=== PATIENT | female | born 1975 | race Caucasian/White ===

== ENCOUNTER 2025-02-13 11:47 | Emergency (ER) | payer OTHER, SELFPAY ==
--- NOTE | ~2025-02-13 | XR_ITS ---
EXAMINATION: XR CHEST 2 VIEWS HISTORY: fever COMPARISON: There are no prior studies available for comparison. FINDINGS: PA and lateral views of the chest are submitted. The lungs are expanded and clear. There is no pleural effusion, pneumothorax, or pulmonary vascular congestion. The heart is normal in size. The bones are intact. XR/XR chest 2V IMPRESSION: Clear lungs. Electronically signed by: Florencio Kwon MD 02/13/2025 01:55 PM EDT
[2025-02-13 11:57] VITALS: BP 103/73; PULSE 110; RESP 16; TEMP 36.9; O2SAT 100; BMI 28.3
[2025-02-13 12:00] VITALS: BP 108/72; PULSE 100; RESP 16; TEMP 36.9; O2SAT 100
--- NOTE | 2025-02-13 12:08 | ED.GENADULT ---
HPI - General Adult General Chief complaint: Urogenital-Female Stated complaint: Chills Fever Etc Time Seen by Provider: 02/13/25 13:00 History of Present Illness ED Provider: Bree CRUZ narrative: The patient is a 50-year-old woman who has been having problems for almost a month. She was traveling and [place] recently. She was in [place] from December 21 to January 22. While in [place] she was in [facility] and 2 other moderately large cities. She was not in the jungle or the country side she says. She says that she started to feel ill while she was in [place]. She estimates that she started to have problems with feeling feverish and maybe some urinary discomfort around January 08. She went to some kind of a clinic while she was in [place] and given some antibiotics for a possible UTI. She returned to the [facility] on January 22 and she had a regularly scheduled appointment with her doctor on February 02. She was feeling somewhat worse just before she saw her PCP at the [facility] clinic on February 02. She was prescribed a 10 day course of sulfamethoxazole/trimethoprim. She continued to feel worse however and on February 06 went to the emergency room at [facility]. At that visit she was complaining of fever and abdominal discomfort. She had a CAT scan of the abdomen and pelvis with IV contrast that was negative. She has a urinalysis that showed 12 white cells. She was placed on a course of cefpodoxime, 200 mg b.i.d. which she has been taking since then. Despite the antibiotic she has continued to have fevers. Yesterday she went to the emergency room at [facility] because she was having ongoing fevers despite the antibiotics. She waited in the emergency room 11 hours before she finally left the waiting room and frustration. She comes here today because she continues to have fevers. She says that her fevers has been most obvious in the design cell engineer at around 01:00 and then again around 10:00. She has a associated sweats and chills. No significant dysuria. No cough. 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 She continues to have mild back and abdominal pain. Her last dose of cefpodoxime was today at noon. The urine culture that was submitted at [facility] last week grew mixed urogenital yemi, 10,000-25,000 colony-forming units Related Data Previous Rx's ?Medication ?Instructions ?Recorded doxycycline monohydrate 100 mg 100 mg PO BID #20 caps 02/13/25 capsule ibuprofen 400 mg tablet 400 mg PO Q6H PRN pain #14 tabs 02/13/25 ondansetron 4 mg disintegrating 4 mg PO Q6H PRN nausea and 02/13/25 tablet vomiting #10 tabs Allergies Allergy/AdvReac Type Severity Reaction Status Date / Time Iodinated Contrast Media (IV Allergy Unknown Verified 02/13/25 12:10 Contrast Dye) Penicillins Allergy Unknown Verified 02/13/25 12:10 Review of Systems Review of Systems: Yes all other systems are reviewed and are negative PMFSH Social History Social History Smoked in Last 30 Days: No Use of substances other than those prescribed or required for medical reasons: No Advance Directives: No Advance Directives Information Provided: Yes Do you have a plan to hurt others: No Plan Patient : No Physical Exam ED Vital Signs: Vital Signs - 24 hr 02/13/25 11:57 02/13/25 12:00 02/13/25 14:42 Temperature 98.4 F 98.5 F 100.5 F H Pulse Rate 110 H 100 102 H Respiratory Rate 16 16 22 H Blood Pressure 103/73 108/72 109/71 Pulse Oximetry 100 100 98 Oxygen Delivery Method Room Air Room Air Room Air 02/13/25 16:00 02/13/25 18:00 02/13/25 18:23 Temperature 100.0 F 99.7 F 100.0 F Pulse Rate 60 104 H 60 Respiratory Rate 18 18 18 Blood Pressure 103/60 99/49 L 103/60 Pulse Oximetry 99 96 99 Oxygen Delivery Method Room Air Room Air Room Air BMI result Body Mass Index 28.3 Const Other: The patient is a 50-year-old woman who is awake and alert with a normal mental status. She looks somewhat flushed and mildly unwell but not acutely toxic. Orientation/consciousness: patient oriented x3 HENMT Other: Face is symmetrical. The patient has a large denture appliance on the roof of her mouth. No intraoral swelling. No trismus. No facial swelling. Mucous membranes are moist. The posterior pharynx is normal. Eyes Other: Pupils are round equal, conjunctivae are clear, extraocular movements intact General: appearance normal, both eyes and all related structures Neck Neck: Yes normal visual inspection, Yes full ROM and Yes no lymphadenopathy Resp Effort & Inspection: normal respiratory effort Auscultation: clear to auscultation bilaterally Cardio Other: No murmur heard Rate: regular rate Rhythm: regular rhythm Heart sounds: S1 normal heart sound present and S2 normal heart sound present GI Other: The abdomen is soft and nontender Skin Other: The skin is dry and unremarkable. No rash or other lesions. Neuro General: patient oriented x3, tone normal, moves all extremities, no focal motor deficits and CN's II-XI intact bilaterally Extrem Other: There is no calf swelling or tenderness. No asymmetry. No peripheral edema. Course Course Course Narrative: RME, this is a rapid medical exam performed by Joni Wu please refer to primary provider for complete H&P- 50 year old female presents for evaluation of fevers and chills. She reports that she was recently seen at [facility] and diagnosed with a UTI she reports that she is currently taking antibiotics. Plan for labs including blood cultures and urinalysis. Medications Administered Discontinued Medications Generic Name Dose Route Start Last Admin Trade Name Freq PRN Reason Stop Dose Admin Sodium Chloride 1,000 mls @ 999 mls/hr 02/13/25 13:30 02/13/25 14:42 Ns IV 02/13/25 14:30 Infused .Q1H1M KAVEH Infusion Sodium Chloride 1,000 mls @ 999 mls/hr 02/13/25 15:30 02/13/25 15:41 Ns IV 02/13/25 16:30 999 mls/hr .Q1H1M KAVEH Administration Acetaminophen 1,000 mg in 100 mls @ 400 mls/hr 02/13/25 16:27 02/13/25 16:43 Ofirmev IV 02/13/25 16:41 400 mls/hr ONCE ONE Administration Ketorolac Tromethamine 15 mg 02/13/25 15:21 02/13/25 15:40 Ketorolac Tromethamine 15 Mg/Ml Vial IVPUSH 02/13/25 15:22 15 mg ONCE ONE Administration Medical Decision Making Medical Decision Making MDM Narrative: The patient is a 50-year-old woman who has been sick for several weeks. She recently spent a month in [facility] in [facility]. She was in [facility] and 2 other moderately sized cities. She was not in the jungle and she does not think she had any unusual exposures while she was there. She has been having fevers for a couple of weeks now. She thought that perhaps she had urinary symptoms. She was initially started on Bactrim by her PCP on February 02. She was then seen in the emergency room at [facility] on February 06 when she was placed on cefpodoxime for a possible UTI. She had a negative CT of the abdomen and pelvis at that time. Her urine culture from the ED at [facility] did not grow any dominant organism. There was mixed yemi. She continues to have fevers as high as 104 despite taking the cefpodoxime. Blood cultures has been ordered at triage. Her lactate is normal. She reports having taken her last dose of cefpodoxime just before coming to the emergency room. This will likely make the blood cultures unreliable. However the patient's workup is not really suggesting a bacterial etiology for her fevers. She has a white count of 4.8. She has mild thrombocytopenia with a platelet count of 147. Her differential on her white count shows 66% neutrophils. Manual review of the slides suggests atypical lymphocytes probably consistent with a viral illness. The patient has an AST of 203, ALT 401, alk phos 166. Bilirubin is normal. CRP mildly elevated at 3.88. ESR mildly elevated at 27. My overall impression is that the patient probably does not have an acute bacterial illness but probably has some kind of unusual illness related to her travel in [place]. I spoke to Dr. Mota a pathology who reviewed the manual differential. He felt the differential looked more consistent with a viral infection than anything else. No findings to suggest malaria. I reviewed these cases with Dr. Ventura as well. She requested testing for tick-borne illness. We will send a Lyme test as well as anaplasmosis. Additionally testing for dengue has been sent. The patient will be started on a 10 day course of doxycycline. The patient was given an IV fluids while in the emergency room. She seemed to feel better. She seems to feel well enough for discharge and management as an outpatient. She was told that she probably has an unusual viral illness. If she feels significantly worse she should return to the emergency room. Lab Data 02/13/25 12:19 02/13/25 12:19 Labs: Lab Results 02/13/25 02/13/25 02/13/25 Range/Units 12:19 12:57 14:18 WBC 4.8 (4.8-10.8) X10*3/uL RBC 3.83 L (4.20-5.50) X10*6/uL Hgb 12.6 (12.0-16.0) g/dl Hct 35.7 L (37.0-47.0) % MCV 93.2 (80.0-98.0) fL MCH 32.9 (27.0-33.0) pg MCHC 35.3 H (31.0-35.0) g/dl RDW 14.1 (11.0-16.0) % Plt Count 147 L (160-400) X10*3/uL MPV 10.7 (9.4-12.3) fL Immature Gran % (Auto) Cancelled Neut % (Auto) Cancelled Lymph % (Auto) Cancelled Wheeler % (Auto) Cancelled Eos % (Auto) Cancelled Baso % (Auto) Cancelled Lymph # (Auto) Cancelled Wheeler # (Auto) Cancelled Eos # (Auto) Cancelled Baso # (Auto) Cancelled Abs Immat Gran (auto) Cancelled Absolute Neuts (auto) Cancelled Absolute Nucleated RBC 0.000 (0.0-0.012) X10*3/uL Nucleated RBC % (auto) 0.0 (0.0-0.2) /100WBC Neutrophils % (Manual) 66 (45-73) % Band Neutrophils % 4 (3-5) % Lymphocytes % (Manual) 12 L (20-40) % Atypical Lymphs % (Man) 2 (0-6) % Monocytes % (Manual) 7 (2-11) % Eosinophils % (Manual) 2 (0-4) % Basophils % (Manual) 1 (0-2) % Metamyelocytes % 1 % Myelocytes % 3 % Blast Cells % (Manual) 2 % Abs Neuts (Manual) 3.4 (2.0-8.3) X10*3/uL Lymphocytes # (Manual) 0.6 L (1.2-4.9) X10*3/uL Atyp Lymphs # (Manual) 0.1 x10*3/uL Monocytes # (Manual) 0.3 (0.1-1.2) X10*3/uL Eosinophils # (Manual) 0.1 (0.0-0.4) X10*3/uL Myelocytes # 0.1 X10*/uL Blast Cells # 0.1 X10*3/uL Smudge Cells PRESENT Toxic Vacuolation PRESENT Platelet Estimate NORMAL (NORMAL) Large Platelets PRESENT Plt Morphology Comment NOTED RBC Morphology NOTED Polychromasia 1+ (0-2) /OIF Macrocytosis 1+ (5-14) /OIF Smear Tech's Comments MANUAL DIFF Smear Path Review SEE NOTE ESR 27 H (0-20) MM/HR Sodium 138 (135-145) mmol/L Potassium 3.7 (3.3-5.1) mmol/L Chloride 103 (96-108) mmol/L Carbon Dioxide 26 (22-29) mmol/L Anion Gap 13 (12-20) BUN 16 (9-16) mg/dL Creatinine 0.80 (0.5-1.4) mg/dL Estim Creat Clear Calc 83.3 Estimated GFR > 60 Random Glucose 116 H (60-115) mg/dL Lactic Acid 1.6 (0.5-2.0) mmol/L Calcium 8.8 (8.4-10.2) mg/dL Total Bilirubin 0.6 (0.0-1.0) mg/dL AST 203 H (5-31) U/L ALT 401 H (0-31) U/L Alkaline Phosphatase 166 H (39-117) U/L C-Reactive Protein 3.88 H (< or = 0.50) mg/dL Total Protein 7.4 (6.5-8.0) g/dL Albumin 3.7 (3.5-5.0) g/dL Lipase 13 (8-78) U/L Beta HCG, Quant 5 mIU/mL Urine Color Dark Yellow Urine Appearance Clear Urine pH 6.0 (5.0-9.0) Ur Specific [place] >= 1.030 H (1.005-1.025) Urine Protein 30 (1+) H (Neg-Trace) mg/dL Urine Glucose (UA) Negative (Negative) mg/dL Urine Ketones Trace (Negative) mg/dL Urine Blood Negative (Negative) Urine Nitrite Negative (Negative) Ur Leukocyte Esterase Trace H (Negative) Urine RBC 0-2 (0-2) /HPF Urine WBC 0-5 (0-5) /HPF Ur Squamous Epith Cells 3-5 (0-2) /HPF Urine Bacteria None Seen (None Seen) Hyaline Casts 0-2 (0-2) /LPF Monoscreen Negative (Negative) Influenza Type A (PCR) NEGATIVE (Negative) Influenza Type B (PCR) NEGATIVE (Negative) RSV RNA Qual (PCR) NEGATIVE (Negative) SARS-CoV-2 RNA (RT-PCR) NEGATIVE (Negative) Discharge Plan Discharge Clinical Impression: Fever, Viral illness Patient Disposition: Home, Self-Care Additional Instructions: We currently think that you have some kind of tropical viral illness. Specifically you may have something called dengue. We have sent a specific test for this illness. This will take a few days. Doxycycline may be somewhat helpful for dengue. Please take this medication 2 times a day as prescribed for a total of 10 days. A prescription for ibuprofen has been sent to the pharmacy which you may use as needed for fever. A prescription for ondansetron has been sent to be used as needed for nausea. Please drink lot of fluids to keep yourself well hydrated. In addition to the ibuprofen you may use [id number] acetaminophen (Tylenol) for your symptoms. Please contact your regular doctor's office for a follow up appointment on Sunday morning. Also contact Dr. Ventura's office. She is the infectious disease doctor here at at [facility]. Call her office on Sunday as well for a follow up appointment. If you feel significantly worse at home please return to the emergency room. Prescriptions: New doxycycline monohydrate 100 mg capsule 100 mg PO BID Qty: 20 0RF ibuprofen 400 mg tablet 400 mg PO Q6H PRN (Reason: pain) Qty: 14 0RF ondansetron 4 mg tablet,disintegrating 4 mg PO Q6H PRN (Reason: nausea and vomiting) Qty: 10 0RF Referrals: Niki Ventura MD [Physician, Infectious Disease] Pato Chavira NP [Nurse Practitioner, Internal Medicine] Interventions: ED Discharge Assessment Last Done: 02/13/25 18:23 Discharge Date/Time: 02/13/25 18:43 Print Language: Belgian
[2025-02-13 12:32] LABS: Hematocrit 35.7 % (37.0-47.0); Hemoglobin 12.6 g/dl (12.0-16.0); Mean Corpuscular HGB Conc 35.3 g/dl (31.0-35.0); Mean Corpuscular Hemoglobin 32.9 pg (27.0-33.0); Mean Corpuscular Volume 93.2 fL (80.0-98.0); NRBC Abs Auto 0.000 X10*3/uL (0.0-0.012); NRBC Pct Auto 0.0 /100WBC (0.0-0.2); Platelet Count 147 X10*3/uL (160-400); Red Blood Count 3.83 X10*6/uL (4.20-5.50); White Blood Count 4.8 X10*3/uL (4.8-10.8)
[2025-02-13 12:48] LABS: Alanine Aminotransferase 401 U/L (0-31); Albumin Level 3.7 g/dL (3.5-5.0); Alkaline Phosphatase 166 U/L (39-117); Anion Gap 13 (12-20); Aspartate Amino Transferase 203 U/L (5-31); Blood Urea Nitrogen 16 mg/dL (9-16); Calcium 8.8 mg/dL (8.4-10.2); Carbon Dioxide 26 mmol/L (22-29); Chloride 103 mmol/L (96-108); Creatinine Clr Calc Pharmacy 83.3; Estimated Glomerular Filt Rate > 60; Lipase 13 U/L (8-78); Potassium 3.7 mmol/L (3.3-5.1); Sodium 138 mmol/L (135-145); Total Protein 7.4 g/dL (6.5-8.0)
[2025-02-13 13:04] LABS: Resp Syncy Virus RNA Qual PCR NEGATIVE (Negative); SARS COV2 PCR INHOUSE NEGATIVE (Negative)
[2025-02-13 13:05] LABS: Appearance Urine Clear; Glucose Urine UA Negative (Negative); PH 6.0 (5.0-9.0); Specific Gravity - Urine >= 1.030 (1.005-1.025); UMIC TRIGGER UACC YES
[2025-02-13 13:20] LABS: Atypical Lymph Absolute Manual 0.1 x10*3/uL; Atypical Lymphs Percent Manual 2 % (0-6); Band Neutrophils Percent 4 % (3-5); Basophils Percent Manual 1 % (0-2); Blast Percent 2 %; Blastocytes Absolute 0.1 X10*3/uL; Eosinophils Absolute Manual 0.1 X10*3/uL (0.0-0.4); Eosinophils Percent Manual 2 % (0-4); Lymphocytes Absolute Manual 0.6 X10*3/uL (1.2-4.9); Lymphocytes Percent Manual 12 % (20-40); Metamyelocytes Percent 1 %; Monocytes Absolute Manual 0.3 X10*3/uL (0.1-1.2); Monocytes Percent Manual 7 % (2-11); Myelocytes Absolute 0.1 X10*/uL; Myelocytes Percent 3 %; Neutrophils Absolute Manual 3.4 X10*3/uL (2.0-8.3); Neutrophils Percent Manual 66 % (45-73)
[2025-02-13 13:21] LABS: Large Platelet PRESENT; Macrocytosis 1+ (5-14) /OIF; RBC Morphology NOTED
[2025-02-13 13:24] LABS: Polychromasia 1+ (0-2) /OIF; Smudge Cells PRESENT; Toxic Vacuolation PRESENT
--- OUTSIDE RECORDS SUMMARY | 2025-02-13 14:01 | XMS_ITS | Clinical Summary ---
Author Organization [facility] Address [address] [place] [address] Phone Care Team Providers Care Cartography Teacher Name Role Phone Deb Reveles MD Primary Care Provider [phone] Allergies Active Allergy Reactions Criticality Noted Date Comments Penicillins 10/25/2012 Medications omeprazole (PriLOSEC) [address] capsule Take 1 Cap by mouth daily. 05/09/2018 Active Active Problems Problem Noted Date Diagnosed Date Gastroesophageal reflux disease 05/09/2018 Chronic back pain 10/25/2012 Immunizations Name Administration Dates Next Due Hepatitis B (Mcbyvtm-Q-Vnxvy , Recombivax HB-Adult) 19yo and older 02/26/2019,10/23/2018,08/28/2018 Influenza Quadravalent, MDCK , 0.5ml, preservative free (Flucelvax) 6mo and older 07/10/2018 Influenza trivalent, with pr eservative (Fluzone; Afluria) 6mo and older 05/05/2015,06/19/2014,06/04/2013 MMR, measles mumps and rubel la Live (Priorix; M-M-R II) 12mo and older 10/23/2018,08/28/2018 PPD Test 07/10/2018,03/23/2015 Tdap Tetanus diptheria acell ular pertussis (Boostrix; Adacel) 7yo and older 06/04/2013 Surgical History Surgery Date Site/Laterality Comments TUBAL LIGATION 2010 PROCEDURE: HISTORICAL TUBAL LIGATION OTHER SURGICAL HISTORY PROCEDURE: HISTORICAL CA BASAL CELL; COMMENT: BCC 11/19 nose (nodular with a metatypical features) BREAST BIOPSY Right PROCEDURE: BX BREAST; PERC NEEDLE CORE W/IMAG GUID Medical History Medical History Date Comments Kidney stones DX:Kidney stones ; COMMENT: had lithotripsy Chronic back pain 10/25/2012 DX:Chronic roge k pain History of basal cell carcinoma 11/23/2015 DX:History of basal cell carcinoma; COMMENT: BCC 11/19 nose (nodular with a metatypical features) Gastroesophageal reflux disease 05/09/2018 DX:Gastroesophageal reflux disease Family History Medical History Relation Name Comments Coronary artery disease Father Diabetes Father Hypertension Father No Known Problems Maternal Grandfather Depression Maternal Grandmother Diabetes Maternal Grandmother Depression Mother Diabetes Mother Hypertension Mother No Known Problems Paternal Grandfather No Known Problems Paternal Grandmother No Known Problems Sister 1 No Known Problems Sister 2 Relation Name Status Comments Father Maternal Grandfather Maternal Grandmother Mother Alive Paternal Grandfather Paternal Grandmother Sister 1 Alive Sister 2 Alive Social History Tobacco Use Types Packs/Day Years Used Date Smoking Tobacco: Every Day Cigarettes Smokeless Tobacco: Never Alcohol Use Standard Drinks/Week Comments No 0 (1 standard drink = 0.6 oz pur e alcohol) Comments Unknown Sex and Gender Information Value Date Recorded Sex Assigned at Female 09/17/2024 1:38 AM EST Legal Sex Female 11:36 PM EST Gender Identity Female 09/17/2024 1:38 AM EST Sexual Orientation Choose not to disclose 2024 1:38 AM EST Obstetrics History Last Filed Vital Signs Vital Sign Reading Time Taken Comments Blood Pressure 118/99 09/16/2024 9:44 PM EST Pulse 82 09/16/2024 9:44 PM EST Temperature 36.7 C (98.1 F) 09/16/2024 9:44 PM EST Respiratory Rate 18 09/16/2024 9:44 PM EST Oxygen Saturation 99% 09/16/2024 9:44 PM EST Inhaled Oxygen Concentration - - Weight 66.7 kg (147 lb) 09/16/2024 9:44 PM EST Height 154.9 cm (5' 1 ) 09/16/2024 9:44 PM EST Body Mass Index 27.78 09/16/2024 9:44 PM EST Plan of Treatment Health Maintenance Due Date Last Done Comments Pneumococcal Vaccine: 50+ Years (1 of 2 - PCV) 1994 Pneumococcal Vaccine: Pediatrics (0 to 5 Years) and At-Risk Patients (6 to 49 Years) (1 of 2 - PCV) 1994 Zoster Vaccines (1 of 2) 1994 Breast Cancer Screening 09/10/2020 09/10/2018 Cervical Cancer Screening: Pap Smear 08/29/2021 08/29/2018, 08/29/2018, 08/29/2018 Colorectal Cancer Screening: Colonoscopy 07/09/2022 Depression Screening 07/09/2022 HIV Screening 07/09/2022 Social Influencers of Health Screening 07/09/2022 DTaP,Tdap,and Td Vaccines (2 - Td or Tdap) 06/04/2023 06/04/2013 COVID-19 Vaccine ( - season) 2024 08/11/2021, 01/06/2021, 12/15/2020 Influenza Vaccine (#1) 2025 , 07/10/2018, 05/05/2015, Additional history exists Hepatitis C Screening Completed 02/20/2013 MMR Vaccines Aged Out 10/23/2018, 08/28/2018 No lo nger eligible based on patient's age to complete this topic Hepatitis B Vaccines Completed 02/26/2019, 10/23/2018, 08/28/2018 HIB Vaccines Aged Out No longer eligi ble based on patient's age to complete this topic HPV Vaccines Aged Out No longer eligi ble based on patient's age to complete this topic Hepatitis A Vaccines Aged Out No long er eligible based on patient's age to complete this topic IPV Vaccines Aged Out No longer eligi ble based on patient's age to complete this topic Meningococcal ACWY Vaccine Aged Out N o longer eligible based on patient's age to complete this topic Meningococcal B Vaccine Aged Out No l onger eligible based on patient's age to complete this topic RSV Immunization Patients Under 20 months Aged Out No longer eligible based on patient's age to complete this topic Varicella Vaccines Aged Out No longer eligible based on patient's age to complete this topic Procedures Procedure Name Priority Date/Time Associated Diagnosis Comments SCR MAMMO BI INCL CAD Routine 09/10/2018 5:28 PM EST Encounter for screening mammogram for malignant neoplasm of breast PAP SMEAR Routine 08/29/2018 HM HEPATITIS C SCREENING Routine 02/20/2013 from Last 3 Months or Most Recently Relevant to Health Maintenance Results * SCR MAMMO BI INCL CAD (09/10/2018 5:28 PM EST) Anatomical Region Laterality Modality Radiographic Tonja ging 07/10/2018 12:1 3 PM EST Narrative 09/11/2018 9:17 AM EST This is a summary report. The complete report is available in the patient's medical record. If you cannot access the medical record, please contact the sending organization for a detailed fax or copy. Full field digital screening mammography, reviewed with CAD and compared to previous mammogram of 06/27/2013. The breast tissue is heterogeneously dense, limiting sensitivity. No suspicious mass, architectural distortion or suspicious calcifications are identified. Extensive benign calcifications in both breasts have increased the previous study. There is a microclip beneath the right nipple from previous benign biopsy which demonstrated apocrine cyst. IMPRESSION: : Dense breast tissue, limiting the sensitivity of mammography. No mammographic evidence of malignancy. BIRADS 2-benign 5 year breast cancer risk assessment 0.6 % Lifetime breast cancer risk assessment 6.6 % Breast cancer risk category Low (<15%) Procedure Note Umm Napier MD - 07/25/2022 This is a summary report. The complete report is available in thepatient's medical record. If you cannot access the medical record, pleasecontact the sending organization for a detailed fax or copy. Full field digital screening mammography, reviewed with CAD and comparedto previous mammogram of 06/27/2013. The breast tissue is heterogeneouslydense, limiting sensitivity. No suspicious mass, architectural distortionor suspicious calcifications are identified. Extensive benigncalcifications in both breasts have increased the previous study. There lillie microclip beneath the right nipple from previous benign biopsy whichdemonstrated apocrine cyst. IMPRESSION: : Dense breast tissue, limiting the sensitivity of mammography. Nomammographic evidence of malignancy. BIRADS 2-benign 5 year breast cancer risk assessment 0.6 % Lifetime breast cancer risk assessment 6.6 % Breast cancer risk category Low (<15%) us Haley AMAYA IMG XR PROCEDURES Final Resul t * Pap smear (08/29/2018) 08/29/2018 Narrative HISTORICAL TESTING LAB RESULTING AGENCY - 09/02/2018 1:00 PM EST [id number] THINPREP PAP, IMAGED: NEGATIVE FOR SQUAMOUS INTRAEPITHELIAL LESION AND MALIGNANCY . MARY GODWIN(ASCP) (CASE ELECTRONICALLY SIGNED 09 02 2018) RESULT OF APTIMA HIGH RISK HPV ASSAY: HIGH RISK HPV: NEGATIVE (SEROTYPES 16,18,31,33,35,39,45,51,52,56,58,59,66,68) COMPLETED ON 2018-09-02 ADEQUACY: SATISFACTORY ENDOCERVICAL/TRANSFORMATION ZONE COMPONENT PRESENT. SOURCE: THINPREP PAP HPV ANY DX: REFLEX 16 AND 18, CERVICAL, IMAGED CLINICAL INFORMATION: HPV ANY DIAGNOSIS. Z12.4, Z01.419 us Kevin Valentin MD LAB CYTOLOGY ORDERABLES Final Result HISTORICAL TESTING LAB RESULTING AGENCY * Hepatitis C Screening (02/20/2013) Hepatitis C Screening abstracted us Historical Provider HEALTH MAINTENANCE Final Result from Last 3 Months or Most Recently Relevant to Health Maintenance Insurance [facility] MEDICAID ADVANTAGE Care Teams Cartography Teacher Relationship Specialty Start Date End Date Deb Reveles MD [address] [place] [address] PCP - General Internal Medicine 05/26/21
[2025-02-13 14:42] VITALS: BP 109/71; PULSE 102; RESP 22; TEMP 38.1; O2SAT 98
[2025-02-13 16:00] VITALS: BP 103/60; PULSE 60; RESP 18; TEMP 37.8; O2SAT 99
[2025-02-13 18:00] VITALS: BP 99/49; PULSE 104; RESP 18; TEMP 37.6; O2SAT 96
[2025-02-13 18:23] VITALS: BP 103/60; PULSE 60; RESP 18; TEMP 37.8; O2SAT 99
--- NOTE | 2025-02-14 20:22 | PC.NURSE ---
Lab called to triage with critical result for BC + for cocci in clusters in 1 BC sample. Critical results reported to Ghulam, ED provider.
[2025-02-16 21:13] LABS: Lyme Abs Screen <0.90 index
[2025-03-01 11:44] LABS: A. Phagocytophilum Ab IgG <1:64 (<1:64); A. Phagocytophilum Ab IgM <1:20 (<1:20)
== END 2025-02-13 18:43 | disposition home or self-care (01) ==
PROVIDERS: Physician Assistant; Emergency Provider Emergency Medicine
DX: B34.9 Viral infection, unspecified (principal); A90 Dengue fever [classical dengue]; Z03.818 Encounter for observation for suspected exposure to other biological agents ruled out
CPT/HCPCS: 71046; 80053; 81001; 83605; 83690; 84702; 85007; 85025; 85027; 85652; 86140; 86308; 86617; 86618; 86666; 87040; 87077; 87186; 87205; 87207; 87637; 96361; 96374; 96375; 99284; 99285; J0131; J1885

== ENCOUNTER → 2025-02-13 13:40 | Outpatient (BNV) | payer OTHER, SELFPAY | PROVIDERS: Emergency Provider Emergency Medicine; Visit Provider Radiology Diagnostic Radiology | DX: R50.9 Fever, unspecified (principal) | CPT/HCPCS: 71046 ==

== ENCOUNTER 2025-02-18 15:35 | Emergency (ER) | payer OTHER, SELFPAY ==
--- NOTE | ~2025-02-18 | XR_ITS ---
CLINICAL HISTORY: right lung pain Two views of the chest. COMPARISON: XR chest dated 02/13/25 at 13:51 EDT FINDINGS: Normal heart and mediastinal contours. No consolidation. No pleural effusion or pneumothorax. No acute fracture. IMPRESSION: 1. No consolidation. This document has been electronically signed by: Golden Lozada MD on 02/18/2025 17:38:17
[2025-02-18 16:41] VITALS: BP 94/60; PULSE 113; RESP 16; TEMP 36.7; O2SAT 95; BMI 26.9
--- NOTE | 2025-02-18 16:44 | ED.GENADULT ---
HPI - General Adult General Chief complaint: Chest Pain Stated complaint: Here last week- On Medication, Not Feeling Better Related Data Previous Rx's ?Medication ?Instructions ?Recorded doxycycline monohydrate 100 mg 100 mg PO BID #20 caps 02/13/25 capsule ibuprofen 400 mg tablet 400 mg PO Q6H PRN pain #14 tabs 02/13/25 ondansetron 4 mg disintegrating 4 mg PO Q6H PRN nausea and 02/13/25 tablet vomiting #10 tabs Allergies Allergy/AdvReac Type Severity Reaction Status Date / Time Iodinated Contrast Media (IV Allergy Unknown Verified 02/18/25 16:43 Contrast Dye) Penicillins Allergy Unknown Verified 02/18/25 16:43 [facility] Social History Social History Advance Directives: No Advance Directives Information Provided: No Do you have a plan to hurt others: No Plan Physical Exam ED Vital Signs: Vital Signs - 24 hr 02/18/25 16:41 Temperature 98.0 F Pulse Rate 113 H Respiratory Rate 16 Blood Pressure 94/60 Pulse Oximetry 95 Oxygen Delivery Method Room Air BMI result Body Mass Index 26.9 Course Course Course Narrative: 02/18/25 1653 MONIQUE Rico This is a Rapid Medical Examination (RME) performed by Robert Medina PA-C in triage. Full HPI, ROS, assessment and treatment plan per primary provider in the Main ED. Hx: 50 yo F here for eval of fever/chills x weeks, chest pain since last night, bleeding from nose and mouth x years. seen here on 02/13/25 for fever, disharged on doxy. informed she tested positive for dengue. symptoms have persisted. now having chest pain and lung pain. Plan: labs, ekg, cxr Reevaluation(s) Reevaluation #1: Patient left the emergency department before myself or any of the other clinicians could review or explain physical exam findings, test results, need or lack there of for additional testing, treatment options, or a treatment plan. Medical Decision Making Lab Data 02/18/25 17:03 02/18/25 17:03 Labs: Lab Results 02/18/25 Range/Units 17:03 WBC 7.1 (4.8-10.8) X10*3/uL RBC 3.81 L (4.20-5.50) X10*6/uL Hgb 12.0 (12.0-16.0) g/dl Hct 36.5 L (37.0-47.0) % MCV 95.8 (80.0-98.0) fL MCH 31.5 (27.0-33.0) pg MCHC 32.9 (31.0-35.0) g/dl RDW 15.2 (11.0-16.0) % Plt Count 185 D (160-400) X10*3/uL MPV 10.1 (9.4-12.3) fL Immature Gran % (Auto) Cancelled Neut % (Auto) Cancelled Lymph % (Auto) Cancelled Smith % (Auto) Cancelled Eos % (Auto) Cancelled Baso % (Auto) Cancelled Lymph # (Auto) Cancelled Smith # (Auto) Cancelled Eos # (Auto) Cancelled Baso # (Auto) Cancelled Abs Immat Gran (auto) Cancelled Absolute Neuts (auto) Cancelled Absolute Nucleated RBC 0.000 (0.0-0.012) X10*3/uL Nucleated RBC % (auto) 0.0 (0.0-0.2) /100WBC Neutrophils % (Manual) 47 (45-73) % Band Neutrophils % 16 H (3-5) % Lymphocytes % (Manual) 19 L (20-40) % Atypical Lymphs % (Man) 13 H (0-6) % Monocytes % (Manual) 5 (2-11) % Abs Neuts (Manual) 4.5 (2.0-8.3) X10*3/uL Lymphocytes # (Manual) 1.3 (1.2-4.9) X10*3/uL Atyp Lymphs # (Manual) 0.9 x10*3/uL Monocytes # (Manual) 0.4 (0.1-1.2) X10*3/uL Platelet Estimate NORMAL (NORMAL) Large Platelets PRESENT Plt Morphology Comment NOTED RBC Morphology NOTED Polychromasia 2+ (3-5) /OIF Smear Tech's Comments MANUAL DIFF Sodium 139 (135-145) mmol/L Potassium 3.6 (3.3-5.1) mmol/L Chloride 107 (96-108) mmol/L Carbon Dioxide 24 (22-29) mmol/L Anion Gap 12 (12-20) BUN 16 (9-16) mg/dL Creatinine 0.83 (0.5-1.4) mg/dL Estim Creat Clear Calc 72.7 Estimated GFR > 60 Random Glucose 140 H (60-115) mg/dL Calcium 9.1 (8.4-10.2) mg/dL Magnesium 2.0 (1.6-2.6) mg/dL Total Bilirubin 0.3 (0.0-1.0) mg/dL AST 101 H (5-31) U/L ALT 151 H (0-31) U/L Alkaline Phosphatase 158 H (39-117) U/L Troponin I High Sens 11.3 (<3.5-17.0) ng/L Total Protein 7.3 (6.5-8.0) g/dL Albumin 3.4 L (3.5-5.0) g/dL Lipase 15 (8-78) U/L Discharge Plan Discharge Clinical Impression: Atypical chest pain Patient Disposition: Left W/O Completing Treatment Prescriptions: No Action doxycycline monohydrate 100 mg capsule 100 mg PO BID Qty: 20 0RF ibuprofen 400 mg tablet 400 mg PO Q6H PRN (Reason: pain) Qty: 14 0RF ondansetron 4 mg tablet,disintegrating 4 mg PO Q6H PRN (Reason: nausea and vomiting) Qty: 10 0RF Discharge Date/Time: 02/18/25 20:07
--- NOTE | 2025-02-18 16:52 | ECG_ITS ---
Test Reason : CP Blood Pressure : */* mmHG Vent. Rate : 98 BPM Atrial Rate : 98 BPM P-R Int : 142 ms QRS Dur : 78 ms QT Int : 360 ms P-R-T Axes : 46 3 30 degrees QTcB Int : 459 ms Normal sinus rhythm Normal ECG No previous ECGs available Referred By: Nereyda Medina Electronically Signed By: PREETI CLOUD
[2025-02-18 17:14] LABS: Hematocrit 36.5 % (37.0-47.0); Hemoglobin 12.0 g/dl (12.0-16.0); Mean Corpuscular HGB Conc 32.9 g/dl (31.0-35.0); Mean Corpuscular Hemoglobin 31.5 pg (27.0-33.0); Mean Corpuscular Volume 95.8 fL (80.0-98.0); NRBC Abs Auto 0.000 X10*3/uL (0.0-0.012); NRBC Pct Auto 0.0 /100WBC (0.0-0.2); Platelet Count 185 X10*3/uL (160-400); Red Blood Count 3.81 X10*6/uL (4.20-5.50); White Blood Count 7.1 X10*3/uL (4.8-10.8)
[2025-02-18 17:24] LABS: Alanine Aminotransferase 151 U/L (0-31); Albumin Level 3.4 g/dL (3.5-5.0); Alkaline Phosphatase 158 U/L (39-117); Anion Gap 12 (12-20); Aspartate Amino Transferase 101 U/L (5-31); Blood Urea Nitrogen 16 mg/dL (9-16); Calcium 9.1 mg/dL (8.4-10.2); Carbon Dioxide 24 mmol/L (22-29); Chloride 107 mmol/L (96-108); Creatinine Clr Calc Pharmacy 72.7; Estimated Glomerular Filt Rate > 60; Lipase 15 U/L (8-78); Magnesium 2.0 mg/dL (1.6-2.6); Potassium 3.6 mmol/L (3.3-5.1); Sodium 139 mmol/L (135-145); Total Protein 7.3 g/dL (6.5-8.0)
[2025-02-18 17:31] LABS: Troponin-I High Sensitivity 11.3 ng/L (<3.5-17.0)
[2025-02-18 17:50] LABS: Atypical Lymph Absolute Manual 0.9 x10*3/uL; Atypical Lymphs Percent Manual 13 % (0-6); Lymphocytes Absolute Manual 1.3 X10*3/uL (1.2-4.9); Lymphocytes Percent Manual 19 % (20-40); Monocytes Absolute Manual 0.4 X10*3/uL (0.1-1.2); Monocytes Percent Manual 5 % (2-11); Neutrophils Absolute Manual 4.5 X10*3/uL (2.0-8.3); Neutrophils Percent Manual 47 % (45-73)
[2025-02-18 17:52] LABS: Band Neutrophils Percent 16 % (3-5)
[2025-02-18 17:55] LABS: Polychromasia 2+ (3-5) /OIF; RBC Morphology NOTED
[2025-02-18 17:56] LABS: Large Platelet PRESENT
--- NOTE | 2025-02-18 19:43 | PC.NURSE ---
CC: Jonas Navarro contacted pt via phone- advised may come back at anytime for further eval
--- NOTE | 2025-02-18 20:07 | PC.NURSE ---
Pt not found in [facility] at this time, gameplay engineer Mary aware patient LWCT.
== END 2025-02-18 20:07 | disposition left against medical advice (07) ==
LOC: HO.ED 19:54
PROVIDERS: Physician Assistant Medical; Emergency Provider Emergency Medicine
DX: R07.89 Other chest pain (principal); Z79.899 Other long term (current) drug therapy
CPT/HCPCS: 36415; 71046; 80053; 83690; 83735; 84484; 85007; 85027; 93005; 99283

== ENCOUNTER → 2025-02-18 16:52 | Outpatient (BNV) | payer OTHER, SELFPAY | PROVIDERS: Visit Provider Radiology Diagnostic Radiology | DX: R07.89 Other chest pain (principal) | CPT/HCPCS: 71046 ==

== ENCOUNTER → 2025-02-18 16:52 | Outpatient (BNV) | payer OTHER, SELFPAY | PROVIDERS: Emergency Provider Emergency Medicine; Visit Provider Internal Medicine | DX: R00.0 Tachycardia, unspecified (principal) | CPT/HCPCS: 93010 ==

== ENCOUNTER 2025-02-19 10:59 | Inpatient (IN) | payer OTHER, SELFPAY ==
--- NOTE | ~2025-02-19 | CT_ITS ---
CLINICAL HISTORY: Pleuritic chest pain and SOB --- Additional Notes or Special Instructions: Pre-meds: Benadryl and Solu-Medrol CT angiography chest with contrast. 3D Postprocessing. Comparison: CR - XR CHEST 2V - 02/18/25 17:09 EDT Findings: The heart is normal size. RV/LV ratio is normal. The thoracic aorta is normal caliber. No pulmonary artery filling defects. The visualized thyroid and mediastinum are unremarkable. Bilateral basilar linear opacities likely atelectasis. No pleural effusion or pneumothorax. No adenopathy. The visualized upper abdomen demonstrates no acute process. Possible small hiatal hernia. The bones are intact. IMPRESSION: 1. No pulmonary embolus. 2. Bilateral basilar linear opacities most suggestive of atelectasis. This document has been electronically signed by: Amy Hayden MD on 02/19/2025 21:36:39
--- NOTE | ~2025-02-19 | NM_ITS ---
EXAMINATION: NM LUNG IMAGE PERFUSION CLINICAL INFORMATION: Right chest pain, negative chest x-ray, dyspnea COMPARISON: Chest x-ray from one day ago TECHNIQUE: Multiple projection perfusion scan imaging was performed. 2.5 mCi technetium 99m labeled MAA FINDINGS: The RPO projection demonstrates patchy decreased perfusion in 3 segments, but not clear perfusion defects, in the posterior lung that appears more uniform on the right lateral projection. There is uniform perfusion otherwise. NM/NM pul perfusion IMPRESSION: Intermediate likelihood ratio. There is decreased perfusion in 3 posterior right lung segments but no clear perfusion defects. Electronically signed by: John Thayer MD 02/19/2025 05:19 PM EDT
[2025-02-19 11:11] VITALS: BP 114/70; PULSE 133; RESP 18; TEMP 37.2; O2SAT 96; BMI 23.8
--- NOTE | 2025-02-19 11:28 | ED_ITS ---
HPI - General Adult General Chief complaint: General Medical Stated complaint: patient here yesterday and left got call infection Time Seen by Provider: 02/19/25 14:49 Source: patient Mode of arrival: ambulatory Limitations: language barrier (British-speaking) History of Present Illness ED Provider: Ran Whalen PA-C HPI narrative: 50-year-old female without significant medical history presents to the ED due to being diagnosed with dengue fever 1 week ago (02/13) and feeling progressively worse. Patient states the past 5 days she has been waking up from sleep with a stabbing pain that lasts approximately 5-10 seconds in her right lung with SOB, subjective fever T-max of 100.6? taken with oral thermometer, myalgia, and intermittent nausea that lasts up to 30 minutes. Patient states she has been taking her doxycycline prescription, and is awaiting follow up with Infectious Disease in 3 months. She reports right flank pain with brown urine. Denies chest pain, cough, hemoptysis, phlegm production, vomiting, diarrhea, black/tarry stools, urinary symptoms MD complaint: fever, myalgia Related Data Home Medications ?Medication ?Instructions ?Recorded ?Confirmed chlorhexidine gluconate 0.12 % 15 ml PO BID 02/19/25 0 02/19/25 mouthwash oxycodone 10 mg tablet 10 mg PO Q12H PRN severe luis miguel n 02/19/25 02/19/25 Previous Rx's ?Medication ?Instructions ?Recorded doxycycline monohydrate 100 mg 100 mg PO BID #20 caps 02/13/25 capsule Allergies Allergy/AdvReac Type Severity Reaction Status Date / Time Iodinated Contrast Media (IV Allergy Unknown Verified 02/19/25 11:16 Contrast Dye) Penicillins Allergy Unknown Verified 02/19/25 11:16 seafood Allergy Hives Verified 02/19/25 11:16 Review of Systems 2 Review of Systems: CONST: POS body aches, fever HENT: Negative for neck pain/stiffness, headache, congestion, sore throat, swelling. EYES: Negative for discharge/pain or vision changes. RESP: Negative for cough/hemoptysis and shortness of breath. CV: Negative chest pain, difficulty breathing, palpitations. POS SOB ABD: Negative pain, nausea, vomiting. : Negative increase frequency, dysuria, blood in urine or stool. MUSC: POS myalgia SKIN: Negative rash, lesions/sores. NEURO: Negative headache, dizziness, weakness. [facility] Past Medical History Attestation statement: The following information was validated with the patient. Source: old records reviewed and nursing notes reviewed Medical History (Updated 02/19/25 @ 21:39 by Koby Tong PA-C) Dengue Carcinoma of palate Social History Social History Advance Directives: No Advance Directives Information Provided: No Do you have a plan to hurt others: No Plan Physical Exam ED Vital Signs: Vital Signs - 24 hr 02/19/25 11:11 02/19/25 14:49 02/19/25 15:58 Temperature 98.9 F 98.3 F 98.4 F Pulse Rate 133 H 116 H 115 H Respiratory Rate 18 24 H 23 H Blood Pressure 114/70 108/68 100/64 Pulse Oximetry 96 97 97 Oxygen Delivery Method Room Air Room Air Room Air 02/19/25 18:11 Temperature Pulse Rate 86 Respiratory Rate 20 Blood Pressure 103/62 Pulse Oximetry 95 Oxygen Delivery Method Room Air BMI result Body Mass Index 23.8 GENERAL APPEARANCE: ?AxOx4, tired appearing, no acute distress. HEENT: ?NC, AT. MMM. EOMI, clear conjunctiva, oropharynx clear. NECK: ?Supple without lymphadenopathy.? No stiffness or restricted ROM. HEART:? Normal rate and regular rhythm, normal S1/S1, no m/r/g LUNGS:? CTAB, moving air well. No crackles or wheezes are heard. ABDOMEN: ?Soft, nontender, nondistended with good bowel sounds heard. BACK: R CVA TTP, no overlying skin changes EXTREMITIES: ?Without cyanosis, clubbing or edema. NEUROLOGICAL: ?Grossly nonfocal. Alert and oriented, moving all 4 extremities. Observed to ambulate with normal gait. Skin: ?Warm and dry without any rash. No petechiae Course Course Course Narrative: This is a rapid medical exam performed by Tamir Zafar NP: Additional HPI, ROS, PE not included below will be deferred to primary provider. Patient is a 50y/o F presenting with ongoing fatigue, was called to return for 16% bands after leaving without completing tx. Recently dx with dengue fever after travel to [facility]. Plan: labs including cxs Medications Administered Generic Name Dose Route Start Last Admin Trade Name Daniel PRN Reason Stop Dose Admin Levofloxacin 500 mg in 100 mls @ 100 mls/hr 02/19/25 20:00 02/19/25 20:29 Levaquin IV 100 mls/hr Q24H KAVEH Administration Discontinued Medications Generic Name Dose Route Start Last Admin Trade Name Daniel PRN Reason Stop Dose Admin Diphenhydramine HCl 50 mg 02/19/25 19:27 02/19/25 20:33 Diphenhydramine Hcl 50 Mg/Ml Vial IVPUSH 02/19/25 19:28 50 mg ONCE STA Administration Lactated Ringer's 1,000 mls @ 999 mls/hr 02/19/25 15:40 02/19/25 18:56 Lr IV 02/19/25 16:40 Infused .Q1H1M ONE Infusion Acetaminophen 1,000 mg in 100 mls @ 400 mls/hr 02/19/25 15:40 02/19/25 18:13 Ofirmev IV 02/19/25 15:54 Infused ONCE ONE Infusion Iohexol 65 ml 02/19/25 21:01 02/19/25 21:02 Iohexol 350 Mg/Ml 100 Ml Infus..Btl IV 02/19/25 21:02 65 ml ONCE ONE Administration Methylprednisolone Sodium Succinate 80 mg 02/19/25 19:27 02/19/25 20:33 Methylprednisolone Sod Succ 125 Mg/2 Ml Vial IVPUSH 02/19/25 19:28 80 mg ONCE STA Administration Medical Decision Making Medical Decision Making MDM Narrative: 50-year-old female without significant medical history presents to the ED due to being diagnosed with dengue fever 1 week ago (02/13) and feeling progressively worse. Patient states the past 5 days she has been waking up from sleep with a stabbing pain that lasts approximately 5-10 seconds in her right lung with SOB, subjective fever T-max of 100.6? taken with oral thermometer, myalgia, and intermittent nausea that lasts up to 30 minutes. Patient states she has been taking her doxycycline prescription, and is awaiting follow up with Infectious Disease in 3 months. She reports right flank pain with brown urine Patient is normotensive, afebrile in the department, 16 breaths per minute, 97% on room air. Labs without leukocytosis, bands have resolved at this time. Transaminitis of 102/134 with elevated alk-phos of 147 however these labs are trending down since her initial presentation on 02/13. All other labs WNL. Awaiting EKG, troponin, UA, V/Q scan to evaluate for possible PE. Course 15:48- patient started on IV fluids, Tylenol. Patient does not meet sepsis criteria at this time. 21:31- EKG without ST elevation/depression/T-wave inversion indicative of ischemia, initial troponin at 16.2, 2nd troponin trending down at at 15.9. UA without signs of infection. V/Q scan reveals decreased perfusion in 3 posterior right lung segments, but no clear perfusion defects. At this time it is clear that patient is ill, dengue fever IgG elevated at 1.85, dengue fever IgM negative at 1.32. Unsure why patient is experiencing stabbing right-sided chest/lung pain. I believe patient needs further workup and possible pulmonology consult. Patient does not have follow up with ID for another 3 months. Unclear picture of possible PE/complicated course of dengue fever. I reached out to hospitalist Dr. Peoples who agreed to admission for further evaluation of the chest. This is discussed with patient and patient is agreeable to the plan for admission. Differential Diagnosis Differential Diagnoses: The differential diagnosis associated with the presentation includes ACS Pulmonary embolism Dysrhythmia Dengue fever Admission/Observation Consideration of admission/observation: Escalation of care including admission/observation considered Lab Data MDM Lab Attestation statement: I reviewed the patient's lab results. 02/19/25 12:14 02/19/25 12:14 Labs: Lab Results 02/19/25 02/19/25 02/19/25 Range/Units 12:14 16:03 18:17 WBC 6.3 (4.8-10.8) X10*3/uL RBC 3.67 L (4.20-5.50) X10*6/uL Hgb 12.0 (12.0-16.0) g/dl Hct 34.6 L (37.0-47.0) % MCV 94.3 (80.0-98.0) fL MCH 32.7 (27.0-33.0) pg MCHC 34.7 (31.0-35.0) g/dl RDW 15.2 (11.0-16.0) % Plt Count 201 (160-400) X10*3/uL MPV 9.9 (9.4-12.3) fL Immature Gran % (Auto) Cancelled Neut % (Auto) Cancelled Lymph % (Auto) Cancelled Hughes % (Auto) Cancelled Eos % (Auto) Cancelled Baso % (Auto) Cancelled Lymph # (Auto) Cancelled Hughes # (Auto) Cancelled Eos # (Auto) Cancelled Baso # (Auto) Cancelled Abs Immat Gran (auto) Cancelled Absolute Neuts (auto) Cancelled Absolute Nucleated RBC 0.000 (0.0-0.012) X10*3/uL Nucleated RBC % (auto) 0.0 (0.0-0.2) /100WBC Neutrophils % (Manual) 57 (45-73) % Band Neutrophils % 0 L (3-5) % Lymphocytes % (Manual) 14 L (20-40) % Atypical Lymphs % (Man) 22 H (0-6) % Monocytes % (Manual) 5 (2-11) % Eosinophils % (Manual) 2 (0-4) % Abs Neuts (Manual) 3.6 (2.0-8.3) X10*3/uL Lymphocytes # (Manual) 0.9 L (1.2-4.9) X10*3/uL Atyp Lymphs # (Manual) 1.4 x10*3/uL Monocytes # (Manual) 0.3 (0.1-1.2) X10*3/uL Eosinophils # (Manual) 0.1 (0.0-0.4) X10*3/uL Toxic Vacuolation PRESENT Platelet Estimate NORMAL (NORMAL) Large Platelets PRESENT Plt Morphology Comment NOTED RBC Morphology NOTED Polychromasia 2+ (3-5) /OIF Smear Tech's Comments MANUAL DIFF Sodium 138 (135-145) mmol/L Potassium 3.9 (3.3-5.1) mmol/L Chloride 104 (96-108) mmol/L Carbon Dioxide 25 (22-29) mmol/L Anion Gap 13 (12-20) BUN 15 (9-16) mg/dL Creatinine 0.86 (0.5-1.4) mg/dL Estim Creat Clear Calc 73.2 Estimated GFR > 60 Random Glucose 101 (60-115) mg/dL Lactic Acid 1.6 (0.5-2.0) mmol/L Calcium 8.7 (8.4-10.2) mg/dL Total Bilirubin 0.5 (0.0-1.0) mg/dL AST 102 H (5-31) U/L ALT 134 H (0-31) U/L Alkaline Phosphatase 147 H (39-117) U/L Troponin I High Sens 16.2 15.9 (<3.5-17.0) ng/L C-Reactive Protein 4.36 H (< or = 0.50) mg/dL B-Natriuretic Peptide < 10 (<100) pg/mL Total Protein 7.1 (6.5-8.0) g/dL Albumin 3.4 L (3.5-5.0) g/dL Urine Color Dark Yellow Urine Appearance Clear Urine pH 6.5 (5.0-9.0) Ur Specific [place] 1.020 (1.005-1.025) Urine Protein 30 (1+) H (Neg-Trace) mg/dL Urine Glucose (UA) Negative (Negative) mg/dL Urine Ketones Trace (Negative) mg/dL Urine Blood Negative (Negative) Urine Nitrite Negative (Negative) Ur Leukocyte Esterase Trace H (Negative) Urine RBC 0-2 (0-2) /HPF Urine WBC 6-10 H (0-5) /HPF Ur Squamous Epith Cells >20 (0-2) /HPF Urine Bacteria 2+ (None Seen) Hyaline Casts 0-2 (0-2) /LPF Influenza Type A (PCR) NEGATIVE (Negative) Influenza Type B (PCR) NEGATIVE (Negative) RSV RNA Qual (PCR) NEGATIVE (Negative) SARS-CoV-2 RNA (RT-PCR) NEGATIVE (Negative) Independent Interpretation I performed an independent interpretation of an: EKG Interpretation: I independently interpreted the EKG Vent. Rate : 112 BPM Atrial Rate : 112 BPM P-R Int : 150 ms QRS Dur : 72 ms QT Int : 328 ms P-R-T Axes : 21 1 14 degrees QTcB Int : 447 ms Sinus tachycardia Low voltage QRS Cannot rule out Anterior infarct , age undetermined Abnormal ECG When compared with ECG of 18-Feb-2025 16:55, No significant change was found Radiology Impression Discussion of test interpretation with radiology: I have reviewed the radiologist's reading. Radiologist Impression: V/Q scan FINDINGS: The RPO projection demonstrates patchy decreased perfusion in 3 segments, but not clear perfusion defects, in the posterior lung that appears more uniform on the right lateral projection. There is uniform perfusion otherwise. NM/NM pul perfusion IMPRESSION: Intermediate likelihood ratio. There is decreased perfusion in 3 posterior right lung segments but no clear perfusion defects. Electronically signed by: John Thayer MD 02/19/2025 05:19 PM EDT RP Dictated By: John Thayer MD Signed By: <Electronically signed by John Thayer MD in OV> 02/19/25 0667 External Record Review External record reviewed: Inpatient record, Office record and Outpatient record Tests considered The following testing was considered but not selected: CTA chest, patient with contrast allergy, decided on V/Q scan Prescription Management I considered prescription management with: Antibiotic I considered starting antibiotics, however patient is already on doxycycline to manage Dengue fever. Discharge Plan Discharge Clinical Impression: Suspected dengue fever Patient Disposition: Admitted As Inpatient
[2025-02-19 12:21] LABS: Hematocrit 34.6 % (37.0-47.0); Hemoglobin 12.0 g/dl (12.0-16.0); Mean Corpuscular HGB Conc 34.7 g/dl (31.0-35.0); Mean Corpuscular Hemoglobin 32.7 pg (27.0-33.0); Mean Corpuscular Volume 94.3 fL (80.0-98.0); NRBC Abs Auto 0.000 X10*3/uL (0.0-0.012); NRBC Pct Auto 0.0 /100WBC (0.0-0.2); Platelet Count 201 X10*3/uL (160-400); Red Blood Count 3.67 X10*6/uL (4.20-5.50); White Blood Count 6.3 X10*3/uL (4.8-10.8)
[2025-02-19 12:38] LABS: Alanine Aminotransferase 134 U/L (0-31); Albumin Level 3.4 g/dL (3.5-5.0); Alkaline Phosphatase 147 U/L (39-117); Anion Gap 13 (12-20); Aspartate Amino Transferase 102 U/L (5-31); Blood Urea Nitrogen 15 mg/dL (9-16); Calcium 8.7 mg/dL (8.4-10.2); Carbon Dioxide 25 mmol/L (22-29); Chloride 104 mmol/L (96-108); Creatinine Clr Calc Pharmacy 73.2; Estimated Glomerular Filt Rate > 60; Potassium 3.9 mmol/L (3.3-5.1); Sodium 138 mmol/L (135-145); Total Protein 7.1 g/dL (6.5-8.0)
[2025-02-19 13:57] LABS: Atypical Lymph Absolute Manual 1.4 x10*3/uL; Atypical Lymphs Percent Manual 22 % (0-6); Eosinophils Absolute Manual 0.1 X10*3/uL (0.0-0.4); Eosinophils Percent Manual 2 % (0-4); Lymphocytes Absolute Manual 0.9 X10*3/uL (1.2-4.9); Lymphocytes Percent Manual 14 % (20-40); Monocytes Absolute Manual 0.3 X10*3/uL (0.1-1.2); Monocytes Percent Manual 5 % (2-11); Neutrophils Percent Manual 57 % (45-73)
[2025-02-19 13:58] LABS: Large Platelet PRESENT; RBC Morphology NOTED
[2025-02-19 13:59] LABS: Polychromasia 2+ (3-5) /OIF; Toxic Vacuolation PRESENT
[2025-02-19 14:04] LABS: Band Neutrophils Percent 0 % (3-5); Neutrophils Absolute Manual 3.6 X10*3/uL (2.0-8.3)
[2025-02-19 14:49] VITALS: BP 108/68; PULSE 116; RESP 24; TEMP 36.8; O2SAT 97
--- NOTE | 2025-02-19 15:36 | ECG_ITS ---
Test Reason : SOB Blood Pressure : */* mmHG Vent. Rate : 112 BPM Atrial Rate : 112 BPM P-R Int : 150 ms QRS Dur : 72 ms QT Int : 328 ms P-R-T Axes : 21 1 14 degrees QTcB Int : 447 ms Sinus tachycardia Low voltage QRS Cannot rule out Anterior infarct , age undetermined Abnormal ECG When compared with ECG of 18-Feb-2025 16:55, No significant change was found Referred By: Koby Tong Electronically Signed By: PREETI CLOUD
[2025-02-19 15:51] LABS: Troponin-I High Sensitivity 16.2 ng/L (<3.5-17.0)
[2025-02-19 15:58] VITALS: BP 100/64; PULSE 115; RESP 23; TEMP 36.9; O2SAT 97
[2025-02-19 15:58] LABS: B Type Natriuretic Peptide < 10 pg/mL (<100)
--- OUTSIDE RECORDS SUMMARY | 2025-02-19 16:07 | XMS_ITS | Clinical Summary ---
Author Organization [facility] Address [address] [place] [address] Phone Care Team Providers Care Certified Orthotist Practice Manager Name Role Phone Deb Reveles MD Primary Care Provider [phone] Allergies Active Allergy Reactions Criticality Noted Date Comments Penicillins 10/25/2012 Medications omeprazole (PriLOSEC) [address] capsule Take 1 Cap by mouth daily. 05/09/2018 Active Active Problems Problem Noted Date Diagnosed Date Gastroesophageal reflux disease 05/09/2018 Chronic back pain 10/25/2012 Immunizations Name Administration Dates Next Due Hepatitis B (Gvgueyn-H-Udspu , Recombivax HB-Adult) 19yo and older 02/26/2019,10/23/2018,08/28/2018 [...] Years (1 of 2 - PCV) 1994 Zoster Vaccines (1 of 2) 1994 Breast Cancer Screening 09/10/2020 09/10/2018 Cervical Cancer Screening: Pap Smear 08/29/2021 08/29/2018, 08/29/2018, 08/29/2018 Colorectal Cancer Screening: Colonoscopy 07/09/2022 Depression Screening 07/09/2022 HIV Screening 07/09/2022 Social Influencers of Health Screening 07/09/2022 DTaP,Tdap,and Td Vaccines (2 - Td or Tdap) 06/04/2023 06/04/2013 COVID-19 Vaccine ( season) 2024 08/11/2021, 01/06/2021, 12/15/2020 Influenza Vaccine (#1) 2025 3, 07/10/2018, 05/05/2015, Additional history exists Hepatitis C [...] RESULTING AGENCY - 09/02/2018 1:00 PM EST [id number] THINPREP PAP, IMAGED: NEGATIVE FOR SQUAMOUS INTRAEPITHELIAL LESION AND MALIGNANCY . EMILIE DOWELL , MARY(ASCP) (CASE ELECTRONICALLY SIGNED 09 02 2018) RESULT [...] C Screening (02/20/2013) Hepatitis C Screening abstracted Historical Provider HEALTH MAINTENANCE Final Result from Last 3 Months or Most Recently Relevant to Health Maintenance Insurance [facility] MED[employer] Care Teams Certified Orthotist Practice Manager Relationship Specialty Start Date End Date Deb Reveles MD [address] [place] [id number] PCP - General Internal Medicine 05/26/21
[2025-02-19 16:09] LABS: Appearance Urine Clear; Glucose Urine UA Negative (Negative); PH 6.5 (5.0-9.0); Specific Gravity - Urine 1.020 (1.005-1.025); UMIC TRIGGER UACC YES
[2025-02-19] MEDS: Lactated Ringers 1,000 ML 999 ML IV (16:09)
[2025-02-19 16:18] LABS: UACC Culture Trigger YES
[2025-02-19 18:11] VITALS: BP 103/62; PULSE 86; RESP 20; O2SAT 95
[2025-02-19 18:43] LABS: Troponin-I High Sensitivity 15.9 ng/L (<3.5-17.0)
[2025-02-19 19:08] LABS: Resp Syncy Virus RNA Qual PCR NEGATIVE (Negative); SARS COV2 PCR INHOUSE NEGATIVE (Negative)
--- NOTE | 2025-02-19 19:32 | P.HPHOSP_ITS ---
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 She was diagnosed with dengue (February 13, 2025) fever after visiting [facility] recently. She was also to have positive blood culture for Staphylococcus saprophyticus (one set). She has been taking Bactrim and most recently doxycycline without improvement of symptoms. She also complaining of right-sided chest pain that increases with deep inspiration and orthopnea of 2 pillows. She described the pain as sharp, without radiations and intensity of 5/10. She denied worsening cough, nausea, vomiting or diarrhea. She does complain of some epigastric discomfort which she attributes to the antibiotics. Her appetite has not been good lately. She is a former tobacco smoker -quit about 2 years ago. Past abdominal surgical history is remarkable only for tubal ligation. In the ED today, she was found to have stable vital signs. There is mild tachycardia and mild tachypnea. Blood pressure has been stable. Oxygen saturation is normal room air. Blood workup showed no leukocytosis. There is bandemia of 16%, that seems to be resolved. Atypical lymphocytes are elevated. Toxic vacuolation is present. CRP is 4.36. Hemoglobin is 12.0 and platelets 201. Transaminases and alk-phos are elevated. Troponin is negative x2. BNP is < 10. Urinalysis positive for protein is 1+, ketones trace, leukocytes 3 trace, RBCs 0-2, WBC 6-10, bacteria 2+ and squamous epithelial cells > 20. Viral testing for COVID-19, influenza RSV is negative. CXR done yesterday showed no consolidations. A V/Q scan showed intermediate likelihood ratio, with decreased perfusion in 3 posterior right lung segment but no clear perfusion defects. ECG shows sinus tachycardia, heart rate 112 beats per minute with a abuse acute ischemic changes. ED tx: LR 1 L bolus, acetaminophen 1 g IV. Review of Systems 2 Review of Systems: All 12 systems were reviewed and normal except as noted in HPI. [facility] Medical History Dengue Carcinoma of palate Social History Household Members: Spouse Housing: Other Housing Other:: hotel Do you presently have visiting nurse or other home services: No Patient Tobacco Use Status: Never used Tobacco service: No Meds Allergies Allergy/AdvReac Type Severity Reaction Status Date / Time Iodinated Contrast Media (IV Allergy Unknown Verified 02/19/25 11:16 Contrast Dye) Penicillins Allergy Unknown Verified 02/19/25 11:16 seafood Allergy Hives Verified 02/19/25 11:16 Active Medications: Current Medications Diphenhydramine HCl (Diphenhydramine Hcl 50 Mg/Ml Vial) 50 mg IVPUSH ONCE STA Stop: 02/19/25 19:28 Methylprednisolone Sodium Succinate (Methylprednisolone Sod Succ 125 Mg/2 Ml Vial) 80 mg IVPUSH ONCE STA Stop: 02/19/25 19:28 Home Medications ?Medication ?Instructions ?Recorded ?Confirmed ?Last Taken ?Type chlorhexidine gluconate 0.12 % 15 ml PO BID 02/19/25 0 02/19/25 Unknown History mouthwash oxycodone 10 mg tablet 10 mg PO Q12H PRN severe luis miguel n 02/19/25 02/19/25 Unknown History Physical Exam 2 Vital Signs and Narrative: Vital Signs: Last Vital Signs Temp 98.4 F 02/19/25 15:58 Pulse 86 02/19/25 18:11 Resp 20 02/19/25 18:11 BP 103/62 02/19/25 18:11 Pulse Ox 95 02/19/25 18:11 O2 Del Method Room Air 02/19/25 18:11 BMI result Body Mass Index 23.8 Constitutional - Awake and Alert, No apparent distress. Pleasant. Cooperative. HEENT - PER, EOMI Heart - RRR, No murmurs Lungs - Normal lung expansion, Normal respiratory effort, No respiratory distress. Decreased breath sound at bases. No crackles. No wheezing. No rhonchi. Abdomen - NT / ND; +BS; No rebound or guarding Extremities - no calf tenderness bilaterally, no swelling Musculoskeletal - Normal inspection, normal ROM Skin - Warm/Dry. No pallor. No jaundice. No rash. No petechia. Neurological - Alert & oriented x3. Moving all extremities spontaneously. Psychological - Appropriate affect Results Labs 02/20/25 07:55 02/20/25 07:55 Labs: Laboratory Results - last 24 hr 02/19/25 02/19/25 02/19/25 12:14 16:03 18:17 MCV 94.3 MCH 32.7 MCHC 34.7 RDW 15.2 Plt Count 201 MPV 9.9 Immature Gran % (Auto) Cancelled Neut % (Auto) Cancelled Lymph % (Auto) Cancelled [place] % (Auto) Cancelled Eos % (Auto) Cancelled Baso % (Auto) Cancelled Lymph # (Auto) Cancelled [place] # (Auto) Cancelled Eos # (Auto) Cancelled Baso # (Auto) Cancelled Abs Immat Gran (auto) Cancelled Absolute Neuts (auto) Cancelled Absolute Nucleated RBC 0.000 Nucleated RBC % (auto) 0.0 Neutrophils % (Manual) 57 Band Neutrophils % 0 L Lymphocytes % (Manual) 14 L Atypical Lymphs % (Man) 22 H Monocytes % (Manual) 5 Eosinophils % (Manual) 2 Abs Neuts (Manual) 3.6 Lymphocytes # (Manual) 0.9 L Atyp Lymphs # (Manual) 1.4 Monocytes # (Manual) 0.3 Eosinophils # (Manual) 0.1 Toxic Vacuolation PRESENT Platelet Estimate NORMAL Large Platelets PRESENT Plt Morphology Comment NOTED RBC Morphology NOTED Polychromasia 2+ (3-5) Smear Tech's Comments MANUAL DIFF Anion Gap 13 Estim Creat Clear Calc 73.2 Estimated GFR > 60 Random Glucose 101 Lactic Acid 1.6 Calcium 8.7 Total Bilirubin 0.5 AST 102 H ALT 134 H Alkaline Phosphatase 147 H C-Reactive Protein 4.36 H B-Natriuretic Peptide < 10 Total Protein 7.1 Albumin 3.4 L Urine Color Dark Yellow Urine Appearance Clear Urine pH 6.5 Ur Specific [place] 1.020 Urine Protein 30 (1+) H Urine Glucose (UA) Negative Urine Ketones Trace Urine Blood Negative Urine Nitrite Negative Ur Leukocyte Esterase Trace H Urine RBC 0-2 Urine WBC 6-10 H Ur Squamous Epith Cells >20 Urine Bacteria 2+ Hyaline Casts 0-2 Influenza Type A (PCR) NEGATIVE Influenza Type B (PCR) NEGATIVE RSV RNA Qual (PCR) NEGATIVE SARS-CoV-2 RNA (RT-PCR) NEGATIVE Imaging Radiologist's Impressions: Impressions Pulmonary Perfusion Imaging 02/19/25 15:01 IMPRESSION: Intermediate likelihood ratio. There is decreased perfusion in 3 posterior right lung segments but no clear perfusion defects. Electronically signed by: John Thayer MD 02/19/2025 05:19 PM EDT RP Assessment and Plan (1) Chest pain: Qualifiers: Chest pain type: unspecified Qualified Code(s): R07.9 - Chest pain, unspecified Status: Acute (2) Night sweats: Status: Acute (3) Transaminitis: Status: Acute Plan Deb Rosa is a 50 y/o woman with a PMHx of cancer of the palate s/p radiation and recent infection with dengue admitted with: Right-sided chest pain, night sweats and nocturnal fever spikes. Possible likely to dengue. ?Superimposed pneumonia, ?PE. Admit to hospitalist service. Telemetry. IV fluids. Tick-borne disease and malaria panel are is still pending. Check chest CTA stat for further evaluation (will give Benadryl and Solu-Medrol IV prior to study due to IV contrast allergy). Blood and urine cultures obtained -will follow results (February 13 - one set grew staphylococcal saprophyticus). Will start empiric IV antibiotic therapy with Levaquin. ID consult. Elevated transaminases and alk-phos. Likely secondary to dengue infection. Check hepatitis panel. Continue to monitor. DVT prophylaxis: Lovenox Code status: Full Patient will need hospitalization for at least 2 midnights for ongoing fever and right-sided chest pain evaluation and management with IV antibiotic therapy, close monitoring of vital sign evaluation by Infectious Disease Service. Quality Stroke Does the patient have a stroke diagnosis?: No VTE Prior VTE?: No VTE Risk Level:: Medical - moderate - high VTE Device Contraindication: Treatment Not Indicated VTE Drug Contraindication: N/A - Med Ordered
[2025-02-19 20:17] VITALS: BP 95/64; PULSE 94; TEMP 36.9; O2SAT 95
--- NOTE | 2025-02-19 20:31 | PHA.MEDREC ---
Addendum entered by Sommer Tapia RPh 02/19/25 21:09: Reviewed by [facility] Original Note: Pharmacy Consult ? Medication Reconciliation Pharmacy has completed the medication reconciliation. Spoke to patient to confirm med list.
[2025-02-19] MEDS: iohexoL 350 MG/ML 100 ML INFUS..BTL 65 ML IV (21:02)
[2025-02-19] MEDS: Lactated Ringers 1,000 ML 125 ML IVCONT (22:04)
--- NOTE | 2025-02-19 23:21 | PC.NURSE ---
Pt reports continued 10/10 headache s/p prn tylenol administration. She is well appearing, with baseline mentation, and in the bed without distress. RN outreached the hospitalist to make him aware and to request new orders
[2025-02-19] MEDS: oxyCODONE HCl Immed Release 5 MG TABLET PO (23:58)
[2025-02-20 03:16] VITALS: BP 96/56; PULSE 74; RESP 17; TEMP 36.4; O2SAT 96
[2025-02-20 03:20] VITALS: BMI 24.2
[2025-02-20 04:00] VITALS: BMI 24.8
[2025-02-20] MEDS: Lactated Ringers 1,000 ML 125 ML IVCONT (06:04)
[2025-02-20 07:40] VITALS: BP 97/55; PULSE 83; RESP 20; TEMP 36.5; O2SAT 93
[2025-02-20 08:13] LABS: Hematocrit 31.8 % (37.0-47.0); Hemoglobin 10.9 g/dl (12.0-16.0); Mean Corpuscular HGB Conc 34.3 g/dl (31.0-35.0); Mean Corpuscular Hemoglobin 32.3 pg (27.0-33.0); Mean Corpuscular Volume 94.4 fL (80.0-98.0); NRBC Abs Auto 0.000 X10*3/uL (0.0-0.012); NRBC Pct Auto 0.0 /100WBC (0.0-0.2); Platelet Count 188 X10*3/uL (160-400); Red Blood Count 3.37 X10*6/uL (4.20-5.50); White Blood Count 4.6 X10*3/uL (4.8-10.8)
[2025-02-20 08:19] LABS: INTERNATIONAL NORM RATIO 1.1 (0.9-1.1); Prothrombin Time 12.1 SEC (10.9-12.4)
[2025-02-20 08:28] LABS: Alanine Aminotransferase 99 U/L (0-31); Albumin Level 3.3 g/dL (3.5-5.0); Alkaline Phosphatase 128 U/L (39-117); Anion Gap 10 (12-20); Aspartate Amino Transferase 71 U/L (5-31); Blood Urea Nitrogen 13 mg/dL (9-16); Calcium 9.0 mg/dL (8.4-10.2); Carbon Dioxide 26 mmol/L (22-29); Chloride 106 mmol/L (96-108); Creatinine Clr Calc Pharmacy 95.5; Estimated Glomerular Filt Rate > 60; Magnesium 2.1 mg/dL (1.6-2.6); Potassium 4.3 mmol/L (3.3-5.1); Sodium 138 mmol/L (135-145); Total Protein 6.9 g/dL (6.5-8.0)
[2025-02-20 08:48] LABS: HBS Num1 614.92 mIU/mL (0-7.99); HBc Num1 1.11 S/CO (0.00-0.79); HBsAGNum1 0.40 S/CO (0.00-0.99); Hepatitis A Antibody IgM 0.14 Index (0-0.79); Hepatitis B Surface Antigen Negative (Negative); ~HepC Num1 0.18 S/CO (0.00-0.79); ~Hepatitis A Antibody IgM Nonreactive (Nonreactive); ~Hepatitis B Surface Antibody REACTIVE (Nonreactive); ~Hepatitis C Antibody Nonreactive (Nonreactive)
[2025-02-20 09:33] LABS: Atypical Lymph Absolute Manual 0.6 x10*3/uL; Atypical Lymphs Percent Manual 13 % (0-6); Band Neutrophils Percent 7 % (3-5); Lymphocytes Absolute Manual 1.7 X10*3/uL (1.2-4.9); Lymphocytes Percent Manual 36 % (20-40); Monocytes Absolute Manual 0.1 X10*3/uL (0.1-1.2); Monocytes Percent Manual 2 % (2-11); Neutrophils Absolute Manual 2.3 X10*3/uL (2.0-8.3); Neutrophils Percent Manual 42 % (45-73)
[2025-02-20 09:38] LABS: RBC Morphology NOTED
[2025-02-20 09:39] LABS: Macrocytosis 1+ (5-14) /OIF; Polychromasia 2+ (3-5) /OIF
[2025-02-20 09:41] LABS: Smudge Cells PRESENT
[2025-02-20 10:00] LABS: HBc Num2 1.05 S/CO; HBc Num3 0.97 S/CO
--- NOTE | 2025-02-20 10:52 | MHC.CM.PN ---
Pt. lives with her family, she does not use home health services or DME. PCP is confirmed: Pato Chavira in [place]. Pt. will complete HCP here, naming her dtr. She can arrange a ride home at [place]. DCP: home, self care. CM to follow for DC needs.
--- NOTE | 2025-02-20 11:51 | HO.PM.IMPN ---
Subjective Subjective Date of Service: 02/20/25 Interval History: bilateral chest pain Physical Exam Exam: Exam: General: AO X 3, no acute distress Resp: CTA bilateral, no accessory muscles used CVS: S1,S2,RRR GI: soft, non tender, non distended Neuro: motor grossly intact, alert Psych: appropriate affect, appropriate insight Vital Signs: Vital Signs: Last Vital Signs Temp 97.7 F 02/20/25 07:40 Pulse 83 02/20/25 07:40 Resp 20 02/20/25 07:40 BP 97/55 L 02/20/25 07:40 Pulse Ox 93 02/20/25 07:40 O2 Del Method Room Air 02/20/25 07:40 BMI result Body Mass Index 24.8 Objective Data Active Medications Acetaminophen (Acetaminophen 325 Mg Tablet) 975 mg PO Q6H PRN PRN Reason: Pain, Mild 1-3,fever,headache Last Admin: 02/20/25 07:40 Dose: 975 mg Documented By: JUSTICE Calcium Carbonate (Calcium Carbonate 750 Mg Tab.Chew) 750 mg PO Q4H PRN PRN Reason: Heartburn Enoxaparin Sodium (Enoxaparin Sodium 40 Mg/0.4 Ml Syringe) 40 mg SUBCUT Q24H [facility] Last Admin: 02/20/25 08:31 Dose: 40 mg Documented By: JUSTICE Lactated Ringer's (Lr) 1,000 mls @ 125 mls/hr IVCONT .Q8H [facility] Last Admin: 02/20/25 06:04 Dose: 125 mls/hr Documented By: HOLGER Levofloxacin (Levaquin) 500 mg in 100 mls @ 100 mls/hr IV Q24H [facility] Last Infusion: 02/19/25 21:58 Dose: Infused Documented By: KYAW Sodium Chloride (0.9 % Sodium Chloride Flush 3 Ml Syringe) 3 ml IVFLUSH QSHIFT [facility] Last Admin: 02/20/25 07:48 Dose: Not Given Documented By: JUSTICE Non-Admin Reason: IV Running Labs 02/20/25 07:55 02/20/25 07:55 Labs: Laboratory Results - last 24 hr 02/19/25 02/19/25 02/19/25 12:14 16:03 18:17 MCV 94.3 MCH 32.7 MCHC 34.7 RDW 15.2 Plt Count 201 MPV 9.9 Immature Gran % (Auto) Cancelled Neut % (Auto) Cancelled Lymph % (Auto) Cancelled [place] % (Auto) Cancelled Eos % (Auto) Cancelled Baso % (Auto) Cancelled Lymph # (Auto) Cancelled [place] # (Auto) Cancelled Eos # (Auto) Cancelled Baso # (Auto) Cancelled Abs Immat Gran (auto) Cancelled Absolute Neuts (auto) Cancelled Absolute Nucleated RBC 0.000 Nucleated RBC % (auto) 0.0 Neutrophils % (Manual) 57 Band Neutrophils % 0 L Lymphocytes % (Manual) 14 L Atypical Lymphs % (Man) 22 H Monocytes % (Manual) 5 Eosinophils % (Manual) 2 Abs Neuts (Manual) 3.6 Lymphocytes # (Manual) 0.9 L Atyp Lymphs # (Manual) 1.4 Monocytes # (Manual) 0.3 Eosinophils # (Manual) 0.1 Smudge Cells Toxic Vacuolation PRESENT Platelet Estimate NORMAL Large Platelets PRESENT Plt Morphology Comment NOTED RBC Morphology NOTED Polychromasia 2+ (3-5) Macrocytosis Smear Tech's Comments MANUAL DIFF PT INR Anion Gap 13 Estim Creat Clear Calc 73.2 Estimated GFR > 60 Random Glucose 101 Lactic Acid 1.6 Calcium 8.7 Magnesium Total Bilirubin 0.5 AST 102 H ALT 134 H Alkaline Phosphatase 147 H C-Reactive Protein 4.36 H B-Natriuretic Peptide < 10 Total Protein 7.1 Albumin 3.4 L Urine Color Dark Yellow Urine Appearance Clear Urine pH 6.5 Ur Specific [place] 1.020 Urine Protein 30 (1+) H Urine Glucose (UA) Negative Urine Ketones Trace Urine Blood Negative Urine Nitrite Negative Ur Leukocyte Esterase Trace H Urine RBC 0-2 Urine WBC 6-10 H Ur Squamous Epith Cells >20 Urine Bacteria 2+ Hyaline Casts 0-2 Hepatitis A IgM Ab Hep Bs Antigen Hep Bs Antibody Hep B Core Total Ab Hep B Core IgM Ab Hepatitis C Ab (EIA) Influenza Type A (PCR) NEGATIVE Influenza Type B (PCR) NEGATIVE RSV RNA Qual (PCR) NEGATIVE SARS-CoV-2 RNA (RT-PCR) NEGATIVE 02/20/25 07:55 MCV 94.4 MCH 32.3 MCHC 34.3 RDW 15.1 Plt Count 188 MPV 10.1 Immature Gran % (Auto) Cancelled Neut % (Auto) Cancelled Lymph % (Auto) Cancelled [place] % (Auto) Cancelled Eos % (Auto) Cancelled Baso % (Auto) Cancelled Lymph # (Auto) Cancelled [place] # (Auto) Cancelled Eos # (Auto) Cancelled Baso # (Auto) Cancelled Abs Immat Gran (auto) Cancelled Absolute Neuts (auto) Cancelled Absolute Nucleated RBC 0.000 Nucleated RBC % (auto) 0.0 Neutrophils % (Manual) 42 L Band Neutrophils % 7 H Lymphocytes % (Manual) 36 Atypical Lymphs % (Man) 13 H Monocytes % (Manual) 2 Eosinophils % (Manual) Abs Neuts (Manual) 2.3 Lymphocytes # (Manual) 1.7 Atyp Lymphs # (Manual) 0.6 Monocytes # (Manual) 0.1 Eosinophils # (Manual) Smudge Cells PRESENT Toxic Vacuolation Platelet Estimate NORMAL Large Platelets Plt Morphology Comment NORMAL RBC Morphology NOTED Polychromasia 2+ (3-5) Macrocytosis 1+ (5-14) Smear Tech's Comments PT 12.1 INR 1.1 Anion Gap 10 L Estim Creat Clear Calc 95.5 Estimated GFR > 60 Random Glucose 120 H Lactic Acid Calcium 9.0 Magnesium 2.1 Total Bilirubin 0.4 AST 71 H ALT 99 H Alkaline Phosphatase 128 H C-Reactive Protein B-Natriuretic Peptide Total Protein 6.9 Albumin 3.3 L Urine Color Urine Appearance Urine pH Ur Specific [place] Urine Protein Urine Glucose (UA) Urine Ketones Urine Blood Urine Nitrite Ur Leukocyte Esterase Urine RBC Urine WBC Ur Squamous Epith Cells Urine Bacteria Hyaline Casts Hepatitis A IgM Ab Nonreactive Hep Bs Antigen Negative Hep Bs Antibody REACTIVE Hep B Core Total Ab Reactive Hep B Core IgM Ab Cancelled Hepatitis C Ab (EIA) Nonreactive Influenza Type A (PCR) Influenza Type B (PCR) RSV RNA Qual (PCR) SARS-CoV-2 RNA (RT-PCR) Microbiology Microbiology Results: Microbiology 02/19/25 16:19 Urine Culture - Preliminary Urine clean catch - Clean Catch Midstream No growth to date. Assessment and Plan (1) Transaminitis: Status: Acute Plan 50F PMH salivary gland cancer, presented with fevers, chest pain chest pain cta negative for PE, likely due to atelectasis fevers follow up tick studies dengue igG positive, igM negative, likely more chronic follow up ID staph saprophyticus in 1/2 blood cultures ?significance, follow up repeat, likely contaminant dvt prophyalxis - lovenox full code reason for continued hospitalization: id Quality Stroke Does the patient have a stroke diagnosis?: No VTE Prior VTE?: No VTE Risk Level:: Medical - moderate - high VTE Device Contraindication: Treatment Not Indicated VTE Drug Contraindication: N/A - Med Ordered
[2025-02-20 11:55] VITALS: BP 90/52; PULSE 98; RESP 20; TEMP 36.6; O2SAT 92
--- NOTE | 2025-02-20 12:00 | P.DS_ITS ---
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 She was diagnosed with dengue (February 13, 2025) fever after visiting [facility] recently. She was also to have positive blood culture for Staphylococcus saprophyticus (one set). She has been taking Bactrim and most recently doxycycline without improvement of symptoms. She also complaining of right-sided chest pain that increases with deep inspiration and orthopnea of 2 pillows. She described the pain as sharp, without radiations and intensity of 5/10. She denied worsening cough, nausea, vomiting or diarrhea. She does complain of some epigastric discomfort which she attributes to the antibiotics. Her appetite has not been good lately. She is a former tobacco smoker -quit about 2 years ago. Past abdominal surgical history is remarkable only for tubal ligation. In the ED today, she was found to have stable vital signs. There is mild tachycardia and mild tachypnea. Blood pressure has been stable. Oxygen saturation is normal room air. Blood workup showed no leukocytosis. There is bandemia of 16%, that seems to be resolved. Atypical lymphocytes are elevated. Toxic vacuolation is present. CRP is 4.36. Hemoglobin is 12.0 and platelets 201. Transaminases and alk-phos are elevated. Troponin is negative x2. BNP is < 10. Urinalysis positive for protein is 1+, ketones trace, leukocytes 3 trace, RBCs 0-2, WBC 6-10, bacteria 2+ and squamous epithelial cells > 20. Viral testing for COVID-19, influenza RSV is negative. CXR done yesterday showed no consolidations. A V/Q scan showed intermediate likelihood ratio, with decreased perfusion in 3 posterior right lung segment but no clear perfusion defects. ECG shows sinus tachycardia, heart rate 112 beats per minute with a abuse acute ischemic changes. ED tx: LR 1 L bolus, acetaminophen 1 g IV. hospital course: Patient was admitted for chest pain and ruled out for pulmonary embolism, chest pain likely due to atypical pneumonia and atelectasis. For fevers this is felt likely to be due to pneumonia and recommendations from Infectious Disease her 5 days of levofloxacin. Lyme is negative, dengue serologies more consistent with old infection. Staph saprophyticus in 1 of 2 blood cultures is likely a contaminant. Time Attestation Discharge Coordination Time (in mins): 34 Quality: Safe Use of Opioids Does Pt have an Active Cancer Diagnosis on the Problem List?: No Quality: Stroke Does the patient have a stroke diagnosis?: No Physical Exam Exam: Exam: General: AO X 3, no acute distress Resp: CTA bilateral, no accessory muscles used CVS: S1,S2,RRR GI: soft, non tender, non distended Neuro: motor grossly intact, alert Psych: appropriate affect, appropriate insight Vital Signs: Vital Signs: Last Vital Signs Temp 97.8 F 02/20/25 11:55 Pulse 98 02/20/25 11:55 Resp 20 02/20/25 11:55 BP 90/52 L 02/20/25 11:55 Pulse Ox 92 02/20/25 11:55 O2 Del Method Room Air 02/20/25 11:55 BMI result Body Mass Index 24.8 DS: Data Data Completed and Pending Labs on day of discharge: Laboratory Results - last 24 hr 02/19/25 02/19/25 02/19/25 12:14 16:03 18:17 WBC 6.3 RBC 3.67 L Hgb 12.0 Hct 34.6 L MCV 94.3 MCH 32.7 MCHC 34.7 RDW 15.2 Plt Count 201 MPV 9.9 Immature Gran % (Auto) Cancelled Neut % (Auto) Cancelled Lymph % (Auto) Cancelled [place] % (Auto) Cancelled Eos % (Auto) Cancelled Baso % (Auto) Cancelled Lymph # (Auto) Cancelled [place] # (Auto) Cancelled Eos # (Auto) Cancelled Baso # (Auto) Cancelled Abs Immat Gran (auto) Cancelled Absolute Neuts (auto) Cancelled Absolute Nucleated RBC 0.000 Nucleated RBC % (auto) 0.0 Neutrophils % (Manual) 57 Band Neutrophils % 0 L Lymphocytes % (Manual) 14 L Atypical Lymphs % (Man) 22 H Monocytes % (Manual) 5 Eosinophils % (Manual) 2 Abs Neuts (Manual) 3.6 Lymphocytes # (Manual) 0.9 L Atyp Lymphs # (Manual) 1.4 Monocytes # (Manual) 0.3 Eosinophils # (Manual) 0.1 Smudge Cells Toxic Vacuolation PRESENT Platelet Estimate NORMAL Large Platelets PRESENT Plt Morphology Comment NOTED RBC Morphology NOTED Polychromasia 2+ (3-5) Macrocytosis Smear Tech's Comments MANUAL DIFF PT INR Sodium 138 Potassium 3.9 Chloride 104 Carbon Dioxide 25 Anion Gap 13 BUN 15 Creatinine 0.86 Estim Creat Clear Calc 73.2 Estimated GFR > 60 Random Glucose 101 Lactic Acid 1.6 Calcium 8.7 Magnesium Total Bilirubin 0.5 AST 102 H ALT 134 H Alkaline Phosphatase 147 H Troponin I High Sens 16.2 15.9 C-Reactive Protein 4.36 H B-Natriuretic Peptide < 10 Total Protein 7.1 Albumin 3.4 L Urine Color Dark Yellow Urine Appearance Clear Urine pH 6.5 Ur Specific [place] 1.020 Urine Protein 30 (1+) H Urine Glucose (UA) Negative Urine Ketones Trace Urine Blood Negative Urine Nitrite Negative Ur Leukocyte Esterase Trace H Urine RBC 0-2 Urine WBC 6-10 H Ur Squamous Epith Cells >20 Urine Bacteria 2+ Hyaline Casts 0-2 Hepatitis A IgM Ab Hep Bs Antigen Hep Bs Antibody Hep B Core Total Ab Hep B Core IgM Ab Hepatitis C Ab (EIA) Influenza Type A (PCR) NEGATIVE Influenza Type B (PCR) NEGATIVE RSV RNA Qual (PCR) NEGATIVE SARS-CoV-2 RNA (RT-PCR) NEGATIVE 02/20/25 07:55 WBC 4.6 L RBC 3.37 L Hgb 10.9 L Hct 31.8 L MCV 94.4 MCH 32.3 MCHC 34.3 RDW 15.1 Plt Count 188 MPV 10.1 Immature Gran % (Auto) Cancelled Neut % (Auto) Cancelled Lymph % (Auto) Cancelled [place] % (Auto) Cancelled Eos % (Auto) Cancelled Baso % (Auto) Cancelled Lymph # (Auto) Cancelled [place] # (Auto) Cancelled Eos # (Auto) Cancelled Baso # (Auto) Cancelled Abs Immat Gran (auto) Cancelled Absolute Neuts (auto) Cancelled Absolute Nucleated RBC 0.000 Nucleated RBC % (auto) 0.0 Neutrophils % (Manual) 42 L Band Neutrophils % 7 H Lymphocytes % (Manual) 36 Atypical Lymphs % (Man) 13 H Monocytes % (Manual) 2 Eosinophils % (Manual) Abs Neuts (Manual) 2.3 Lymphocytes # (Manual) 1.7 Atyp Lymphs # (Manual) 0.6 Monocytes # (Manual) 0.1 Eosinophils # (Manual) Smudge Cells PRESENT Toxic Vacuolation Platelet Estimate NORMAL Large Platelets Plt Morphology Comment NORMAL RBC Morphology NOTED Polychromasia 2+ (3-5) Macrocytosis 1+ (5-14) Smear Tech's Comments PT 12.1 INR 1.1 Sodium 138 Potassium 4.3 Chloride 106 Carbon Dioxide 26 Anion Gap 10 L BUN 13 Creatinine 0.66 Estim Creat Clear Calc 95.5 Estimated GFR > 60 Random Glucose 120 H Lactic Acid Calcium 9.0 Magnesium 2.1 Total Bilirubin 0.4 AST 71 H ALT 99 H Alkaline Phosphatase 128 H Troponin I High Sens C-Reactive Protein B-Natriuretic Peptide Total Protein 6.9 Albumin 3.3 L Urine Color Urine Appearance Urine pH Ur Specific [place] Urine Protein Urine Glucose (UA) Urine Ketones Urine Blood Urine Nitrite Ur Leukocyte Esterase Urine RBC Urine WBC Ur Squamous Epith Cells Urine Bacteria Hyaline Casts Hepatitis A IgM Ab Nonreactive Hep Bs Antigen Negative Hep Bs Antibody REACTIVE Hep B Core Total Ab Reactive Hep B Core IgM Ab Cancelled Hepatitis C Ab (EIA) Nonreactive Influenza Type A (PCR) Influenza Type B (PCR) RSV RNA Qual (PCR) SARS-CoV-2 RNA (RT-PCR) Preliminary micro results at discharge 02/19/25 16:19 Urine Culture - Preliminary Urine clean catch - Clean Catch Midstream No growth to date. Discharge Plan Discharge Anticipated Discharge Date/Time: 02/20/25 11:58 Patient Disposition: Home, Self-Care Discharge Diagnosis: ?pna Referrals: Pato Chavira NP [Primary Care Provider, Internal Medicine] - 1 Week Discharge Medications: New levofloxacin 500 mg tablet 500 mg PO DAILY Qty: 5 0RF Continued chlorhexidine gluconate 0.12 % mouthwash 15 ml PO BID oxycodone 10 mg tablet 10 mg PO Q12H PRN (Reason: severe pain) Discontinued doxycycline monohydrate 100 mg capsule 100 mg PO BID Qty: 20 0RF Discharge Orders: Discharge Order (Routine); Ordered 02/20/25 Ordered By: Eben Real Diet: Advance to usual diet Activity on Discharge: As tolerated Stand Alone Forms: Patient Portal Discharge page Print Language: Kinyarwanda Care Plan Goals: recovery Health Concerns: atypical pna Plan of Treatment: 5 days tomi Assessment: see above
--- NOTE | 2025-02-20 12:43 | P.CNID_ITS ---
History of Present Illness Data of Consult Service Date: 02/20/25 Requesting physician: Eben Real Primary Care Provider: Pato Chavira NP HPI Reason for consult: right sided chest pain She presents with weakness and fatigue and temperature 100.5 over last week. She has had Doxycycline due to concern over atypical infection. She had dengue she reports and had been in [place] recently. Review of Systems 2 Review of Systems: Yes all other systems are reviewed and are negative PMFSH Past Medical History Medical History Dengue Carcinoma of palate Family History Family history: reviewed and not pertinent Social History Social History Household Members: Spouse Housing: Other Housing Other:: hotel Do you presently have visiting nurse or other home services: No Patient Tobacco Use Status: Never used Tobacco Smoked in Last 30 Days: No Use of substances other than those prescribed or required for medical reasons: No Currently Displaying Signs/Symptoms of Drug Intoxication Withdrawal: No Have you been hit, kicked, punched, or otherwise hurt by someone within the past year? If so, by whom?: No Do you feel safe in your current relationship?: Yes Is there a partner from a previous relationship who is making you feel unsafe now?: No Are you made to feel afraid or neglected: No Advance Directives: No Advance Directives Information Provided: No Do you have a plan to hurt others: No Plan Recently lost weight without trying: No Eating poorly because of decreased appetite: Yes Nutrition Risks: No Nutritional Risk Patient : No service: No Meds Allergies Allergy/AdvReac Type Severity Reaction Status Date / Time Iodinated Contrast Media (IV Allergy Unknown Verified 02/19/25 11:16 Contrast Dye) Penicillins Allergy Unknown Verified 02/19/25 11:16 seafood Allergy Hives Verified 02/19/25 11:16 Active Medications: Current Medications Acetaminophen (Acetaminophen 325 Mg Tablet) 975 mg PO Q6H PRN PRN Reason: Pain, Mild 1-3,fever,headache Last Admin: 02/20/25 07:40 Dose: 975 mg Calcium Carbonate (Calcium Carbonate 750 Mg Tab.Chew) 750 mg PO Q4H PRN PRN Reason: Heartburn Enoxaparin Sodium (Enoxaparin Sodium 40 Mg/0.4 Ml Syringe) 40 mg SUBCUT Q24H [facility] Last Admin: 02/20/25 08:31 Dose: 40 mg Lactated Ringer's (Lr) 1,000 mls @ 125 mls/hr IVCONT .Q8H [facility] Last Admin: 02/20/25 06:04 Dose: 125 mls/hr Levofloxacin (Levaquin) 500 mg in 100 mls @ 100 mls/hr IV Q24H [facility] Last Infusion: 02/19/25 21:58 Dose: Infused Sodium Chloride (0.9 % Sodium Chloride Flush 3 Ml Syringe) 3 ml IVFLUSH QSHIFT [facility] Last Admin: 02/20/25 07:48 Dose: Not Given Home Medications ?Medication ?Instructions ?Recorded ?Confirmed ?Last Taken ?Type chlorhexidine gluconate 0.12 % 15 ml PO BID 02/19/25 0 02/19/25 Unknown History mouthwash oxycodone 10 mg tablet 10 mg PO Q12H PRN severe luis miguel n 02/19/25 02/19/25 Unknown History Physical Exam 2 Vital Signs: Vital Signs: Last Vital Signs Temp 97.8 F 02/20/25 11:55 Pulse 98 02/20/25 11:55 Resp 20 02/20/25 11:55 BP 90/52 L 02/20/25 11:55 Pulse Ox 92 02/20/25 11:55 O2 Del Method Room Air 02/20/25 11:55 BMI result Body Mass Index 24.8 Const: General: cooperative HEENT: Head: Yes normal to inspection Face and sinus: Yes normal facial exam Mouth: Normal oral and palatal mucosa present Teeth and gingiva: d entition normal Eyes: General: appearance normal, both eyes and all related structures P upils: Equal, round and reactive pupils present Resp: Other: decreased bs bases Effort & Inspection: normal respiratory effort Cardio: Rate: regular rate Rhythm: regular rhythm GI: Palpation (GI): Soft to palpation and nontender : General: Yes no CVA tenderness Back/Spine/Pelvis: Back: no CVA tenderness Skin: General skin exam: no rashes or lesions noted Neuro: General: moves all extremities Cranial nerves: Yes Equal, round and reactive pupils present Extrem: General: Yes normal to inspection Psych: Appearance: grossly normal Results Labs 02/20/25 07:55 02/20/25 07:55 Labs: Short CBC 07/17/25 07/18/25 Range/Units 12:14 07:55 WBC 6.3 4.6 L (4.8-10.8) X10*3/uL Hgb 12.0 10.9 L (12.0-16.0) g/dl Hct 34.6 L 31.8 L (37.0-47.0) % Plt Count 201 188 (160-400) X10*3/uL BMP 02/20/25 07:55 Sodium 138 Potassium 4.3 Chloride 106 Carbon Dioxide 26 BUN 13 Creatinine 0.66 Calcium 9.0 Liver Function 02/20/25 Range/Units 07:55 Total Bilirubin 0.4 (0.0-1.0) mg/dL AST 71 H (5-31) U/L ALT 99 H (0-31) U/L Alkaline Phosphatase 128 H (39-117) U/L Albumin 3.3 L (3.5-5.0) g/dL Urine 02/19/25 Range/Units 16:03 Urine Color Dark Yellow Urine Appearance Clear Urine pH 6.5 (5.0-9.0) Ur Specific [place] 1.020 (1.005-1.025) Urine Protein 30 (1+) H (Neg-Trace) mg/dL Urine Glucose (UA) Negative (Negative) mg/dL Microbiology Microbiology Results: Microbiology 02/19/25 16:19 Urine clean catch - Clean Catch Midstream Urine Culture - Preliminary No growth to date. Assessment and Plan (1) Night sweats: Status: Acute Plan There is no evidence of danger signs for late dengue with no thrombocytopenia or ongoing fever. She may have viral or atypical infection Staph saprophyticus in blood is contaminant. Po Levaquin for five days treat possible atypical lung illness.
[2025-02-26 19:18] LABS: HIV RNA PCR Qn Copies Not Detected Copies/mL; HIV RNA PCR Qn Log Copies Not Detected Log cps/mL
== END 2025-02-20 14:54 | disposition home or self-care (01) | DRG 139 ==
LOC: HO.ED 15:33 → HO.EDOVER 20:18 → HO.IMC 02-20 01:22
PROVIDERS: Registered Nurse Emergency; Admitting Provider Internal Medicine; Emergency Provider Emergency Medicine; PCP Nurse Practitioner Family; Visit Provider Internal Medicine
DX: J18.9 Pneumonia, unspecified organism (principal); J98.11 Atelectasis; Z20.822 Contact with and (suspected) exposure to COVID-19
CPT/HCPCS: 36415; 71275; 78580; 80053; 81001; 83605; 83735; 83880; 84484; 85007; 85025; 85027; 85610; 86140; 86704; 86706; 86709; 86803; 87040; 87086; 87207; 87340; 87536; 87637; 87900; 93005; 99222; 99285; A9540; J0131; J1200; J1650; J1956; J2919; J7120; Q9967

== ENCOUNTER → 2025-02-19 15:36 | Outpatient (BNV) | payer OTHER, SELFPAY | PROVIDERS: Admitting Provider Internal Medicine; Emergency Provider Emergency Medicine; PCP Nurse Practitioner Family; Visit Provider Internal Medicine | DX: R00.0 Tachycardia, unspecified (principal) | CPT/HCPCS: 93010 ==

== ENCOUNTER → 2025-02-19 15:38 | Outpatient (BNV) | payer OTHER, SELFPAY | PROVIDERS: Emergency Provider Emergency Medicine; PCP Nurse Practitioner Family; Visit Provider Radiology Diagnostic Radiology | DX: J98.11 Atelectasis (principal); J98.4 Other disorders of lung | CPT/HCPCS: 71275; 78580 ==

== ENCOUNTER → 2025-02-19 19:02 | Outpatient (BNV) | payer OTHER, SELFPAY | PROVIDERS: Admitting Provider Internal Medicine; Emergency Provider Emergency Medicine; PCP Nurse Practitioner Family; Visit Provider Internal Medicine | DX: R07.9 Chest pain, unspecified (principal); R61 Generalized hyperhidrosis; R74.01 Elevation of levels of liver transaminase levels | CPT/HCPCS: 99223; 99239; 99499 ==

== ENCOUNTER → 2025-02-19 19:02 | Outpatient (BNV) | payer OTHER, SELFPAY | PROVIDERS: Admitting Provider Internal Medicine; Emergency Provider Emergency Medicine; PCP Nurse Practitioner Family; Visit Provider Internal Medicine | DX: R61 Generalized hyperhidrosis (principal) | CPT/HCPCS: 99222 ==